=== PATIENT | male | born 1955 | race Two or more races ===

== ENCOUNTER 2024-11-30 06:15 | Inpatient (IN) | payer OTHER ==
[~2024-11-30] VITALS: Ht 180.3 cm; Wt 97.5 kg
[~2024-11-30 06:15] MED LIST: APIX5TAB PO
--- NOTE | 2024-11-30 06:43 | ED.PDOC ---
HPI Comments 69 y/o M, BIBA with PMHX of CKD and CHF presents to the ED for CC of possible Nstemi. Per EMS, patient is coming from [facility], where he presented for chest pain on (11/29/24). Patient was transferred from [facility] for elevated Troponin; patient is currently on Eliquis for atrial fibrillation. Patient denies active chest pain, palpations, tremors, chills, headache, or nausea. No other associated symptoms, modifiers, recent injuries or sick contacts present at this time. Time Seen by MD: 06:36 Reviewed Notes: Nurses Notes, Developmental Services Worker Notes, Medications, Allergies Allergies: Coded Allergies: No Known Drug Allergy (Verified Allergy, Unknown, 11/30/24) Information Source: Patient, Emergency Med Personnel Mode of Arrival: EMS Severity: Moderate Timing: Days Duration: Since onset Prehospital treatment: None Location: Substernal Radiation: No Radiation Onset: At Rest Cardiac Risk Factors: None PE Risk Factors: None History of: None Associated Signs and Symptoms: None Past Medical History PAST MEDICAL HISTORY: CHF, CKF Surgical History: Unknown Family History Family History: Unknown Social History Smoker: Non-Smoker Alcohol: Denies ETOH Use Drugs: Denies Drug Use Lives In: Home Constitutional: denies: chills, diaphoresis, fatigue, fever, malaise, sweats, weakness, others EENTM: denies: blurred vision, double vision, ear bleeding, ear discharge, ear drainage, ear pain, ear ringing, eye pain, eye redness, hearing loss, mouth pain, mouth swelling, nasal discharge, nose bleeding, nose congestion, nose pain, photophobia, tearing, throat pain, throat swelling, voice changes, others Respiratory: denies: cough, hemoptysis, orthopnea, SOB at rest, shortness of breath, SOB with excertion, stridor, wheezing, others Cardiovascular: reports: chest pain; denies: dizzy spells, diaphoresis, Dyspnea on exertion, edema, irregular heart beat, left arm pain, lightheadedness, palpitations, PND, syncope, others Gastrointestinal: denies: abdomen distended, abdominal pain, blood streaked bowels, constipated, diarrhea, dysphagia, difficulty swallowing, hematemesis, melena, nausea, poor appetite, poor fluid intake, rectal bleeding, rectal pain, vomiting, others Genitourinary: denies: burning, dysuria, flank pain, frequency, hematuria, incontinence, penile discharge, penile sore, pain, testicle pain, testicle swelling, urgency, others Neurological: denies: dizziness, fainting, headache, left sided numbness, left sided weakness, numbness, paresthesia, pre-existing deficit, right sided numbness, right sided weakness, seizure, speech problems, tingling, tremors, weakness, others Musculoskeletal: denies: back pain, gout, joint pain, joint swelling, muscle pain, muscle stiffness, neck pain, others Integumetry: denies: bruises, change in color, change in hair/nails, dryness, laceration, lesions, lumps, rash, wounds, others Allergic/Immunocompromised: denies: Difficulty Healing, Frequent Infections, Hives, Itching, others Hematologic/Lymphatic: denies: anemia, blood clots, easy bleeding, easy bruising, swollen glands, others Endocrine: denies: excessive hunger, excessive sweating, excessive thirst, excessive urination, flushing, intolerance to cold, intolerance to heat, une xplained weight gain, unexplained weight loss, others Psychiatric: denies: anxiety, bipolar disorder, depression, hopeless, panic disorder, schizophrenia, sleepless, suicidal, others All Other Systems: Reviewed and Negative Physical Exam General Appearance: No Apparent Distress, Normal HEENT: Normal ENT Inspection, Pharynx Normal, TMs Normal Neck: Full Range of Motion, Non-Tender, Normal, Normal Inspection Respiratory: Chest Non-Tender, Lungs Clear, No Accessory Muscle Use, No Respiratory Distress, Normal Breath Sounds Cardiovascular: No Edema, No JVD, No Murmur, No Gallop, Normal Peripheral Pul ses, Regular Rate/Rhythm Breast Exam: Deferred Gastrointestinal: No Organomegaly, Non Tender, No Pulsatile Mass, Normal Bowel Sounds, Soft Genitalia: Deferred Pelvic: Deferred Rectal: Deferred Extremities: No calf tenderness, Normal capillary refill, Normal inspection, Normal range of motion, Non-tender, No pedal edema Musculoskeletal : Apperance: Normal Neurologic: Alert, director of accounting II-XII nml as Tested, No Motor Deficits, Normal Affect, Normal Mood, No Sensory Deficits Cerebellar Function: Normal Reflexes: Normal Skin: Dry, Normal Color, Warm Lymphatic: No Adenopathy Was a procedure done? Was a procedure done?: No CP Differential Dx Differential Diagnosis: A-fib, AK Differential Diagnosis: Chest Wall Pain, Costochondritis X-Ray, Labs, Meds, VS Vital Signs Date Time Temp Pulse Resp B/P (MAP) Pulse Ox O2 Delivery O2 Flow Rate FiO2 11/30/24 07:30 99.7 62 16 120/61 (80) 99 99.7 11/30/24 07:30 60 16 98 Nasal Cannula* 2 28 11/30/24 07:15 57 11/30/24 07:07 97.5 57 18 122/66 (84) 99 97.5 11/30/24 06:55 99.7 60 18 139/79 (99) 98 99.7 11/30/24 06:17 62 Lab Test 11/30/24 07:35 11/30/24 06:44 Range/Units Troponin I High Sensitivity 2656 *H 2776 *H </=54 ng/L White Blood Count 23.0 H 4.4-10.8 10^3/uL Red Blood Count 4.08 L 4.5-5.90 10^6/uL Hemoglobin 13.2 L 13.5-17.5 g/dL Hematocrit 38.5 L 41.0-53.0 % Mean Corpuscular Volume 94.4 80.0-100.0 fL Mean Corpuscular Hemoglobin 32.3 H 28.0-32.0 pg Mean Corpuscular Hemoglobin Concent 34.2 32.0-36.0 g/dL Red Cell Distribution Width 14.7 H 11.8-14.3 % Platelet Count 158 140-450 10^3/uL Mean Platelet Volume 8.9 6.9-10.8 fL Neutrophils (%) (Auto) 54.9 37.0-80.0 % Lymphocytes (%) (Auto) 37.3 10.0-50.0 % Monocytes (%) (Auto) 7.5 0.0-12.0 % Eosinophils (%) (Auto) 0.3 0.0-7.0 % Basophils (%) (Auto) 0.0 0.0-2.0 % Neutrophils # (Auto) 12.6 H 1.6-8.6 10 ^3/uL Lymphocytes # (Auto) 8.6 H 0.4-5.4 10 ^3/uL Monocytes # (Auto) 1.7 H 0-1.3 10 ^3/uL Eosinophils # (Auto) 0.1 0-0.8 10 ^3/uL Basophils # (Auto) 0 0-0.2 10 ^3/uL Nucleated Red Blood Cells 0.1 % Sodium Level 139 136-145 mmol/L Potassium Level 3.7 3.5-5.1 mmol/L Chloride Level 102 98-107 mmol/L Carbon Dioxide Level 28 20-31 mmol/L Anion Gap 9 5-15 Blood Urea Nitrogen 53 H 9-23 mg/dL Creatinine 3.29 H 0.700-1.30 mg/dL Glomerular Filtration Rate Calc 20 >90 mL/min BUN/Creatinine Ratio 16.1 10.0-20.0 Serum Glucose 182 H 74-106 mg/dL Calcium Level 9.5 8.7-10.4 mg/dL B-Type Natriuretic Peptide 242.48 0-100 pg/mL [place] [address] Ph: [phone] DIAGNOSTIC IMAGING Diagnostic Imaging Report : [id number] Signed PATIENT: SERENA DANIEL ACCT: [id number] UNIT: [id number] : 1955 LOC: ER ROOM / BED: / AGE / SEX: 69 / M ADM STATUS: REG ER SERVICE 4 ORDERING PHYSICIAN: ANN GILMORE MD PROCEDURE(s): CXRP - CHEST PORTABLE REASON: chest pain ORDER NUMBER(s): [id number], ACCESSION NUMBER(s): [id number] CHEST RADIOGRAPH Indication: chest pain Technique: Single frontal view of the chest was obtained Comparison: None FINDINGS: The cardiac silhouette is unremarkable. The lungs demonstrate extensive right upper lobe airspace consolidation. Patchy left mid lung airspace opacification. The pulmonary vasculature is unremarkable. Small left pleural effusion. There is no pneumothorax. IMPRESSION: 1. Right upper lobe airspace consolidation. Patchy left mid lung airspace opacification. Follow-up to resolution. 2. Small left pleural effusion. ATED BY: FABRICIO MCGRATH MD DICTATED DATE/TIME: 11/30/24749 SIGNED BY: FABRICIO MCGRATH MD SIGNED DATE/TIME: 11/30/24749 CC: Time of 1ST Reevaluation: 07:06 Reevaluation 1ST: Unchanged Patient Education/Counseling: Diagnosis, Treatment Family Education/Counseling: No Family Present Additional Information Previous medical encounters reviewed: The following tests were ordered, and results were reviewed by me: TROPONIN X3, EKG X3, CXR, CMP, CBC, B-TYPE NATRIURETIC Additional Information was gathered from interviewing the following independent historians: EMS I reviewed and agreed with the following test results read by other providers: CXR I discussed treatment and results with medical personnel and: Patient Comprehensive systems review obtained and negative except for what is stated in the HPI. Departure 1 Departure Time of Disposition: 08:30 (Patient presented as a transfer from [place]. Patient is a [facility] patient however they gave authorization to [facility] for admission to [facility]. Patient was treated for an NSTEMI however patient does have what appears to be a pneumonia on chest x-ray. Patient was empirically cover with antibiotics however patient has a component of volume overload so we will not give fluids at this time. Consult Cardiology regarding to the elevated troponins admit patient for further workup and expert consultationFamily updated me that several days ago patient had slurred speech and weakness that resolved. I subsequently ordered a CT head.) Impression: Primary Impression: Right upper lobe pneumonia Qualified Codes: J18.9 - Pneumonia, unspecified organism Additional Impression: NSTEMI (non-ST elevated myocardial infarction) Disposition: 09 ADMITTED INPATIENT Admit to: Tele Condition: Guarded Critical Care Note Critical Care Time?: Yes Critical care comment: NSTEMI Authorized and Performed by: Ann Gilmore MD Total critical care time: Approximately 36 minutes Due to a high probability of clinically significant, life threatening deterioration, the patient required my highest level of preparedness to intervene emergently and I personally spent this critical care time directly and personally managing the patient. This critical care time included obtaining a history; examining the patient; pulse oximetry; ordering and review of studies; arranging urgent treatment with development of a management plan; evaluation of patient's response to treatment; frequent reassessment; and, discussions with other providers. This critical care time was performed to assess and manage the high probability of imminent, life-threatening deterioration that could result in multi-organ failure. It was exclusive of separately billable procedures and treating other patients and teaching time. Please see my other sections and the rest of the note for further information on patient assessment and treatment. Stability Stability form required: No Heart Score Heart Score: Heart Score Response (Comments) Value History Slightly Suspicious 0 EKG N/A 0 Age >65 2 Risk Factors 1 or 2 risk factors 1 Troponin N/A 0 Total 3 I personally scribed for ANN GILMORE MD ([email or web address]) on 11/30/24 at 06:43. Electronically submitted by Lisa Sandoval ([facility]). I personally scribed for ANN GILMORE MD ([email or web address]) on 11/30/24 at 06:51. Electronically submitted by Lisa Sandoval ([facility]). I personally scribed for ANN GILMORE MD ([email or web address]) on 11/30/24 at 08:12. Electronically submitted by Lisa Sandoval ([email or web address]). ANN GILMORE MD Nov 30, 2024 06:43
[2024-11-30 07:00] LABS: Basophils # (auto) 0 10 ^3/uL (0-0.2); Eosinophils # (auto) 0.1 10 ^3/uL (0-0.8); Eosinophils % (auto) 0.3 % (0.0-7.0); Hematocrit 38.5 % (41.0-53.0); Hemoglobin 13.2 g/dL (13.5-17.5); Lymphocytes # (auto) 8.6 10 ^3/uL (0.4-5.4); Lymphocytes % (auto) 37.3 % (10.0-50.0); Mean Corpuscular Hemoglobin 32.3 pg (28.0-32.0); Mean Corpuscular Hgb Conc. 34.2 g/dL (32.0-36.0); Mean Corpuscular Volume 94.4 fL (80.0-100.0); Monocytes # (auto) 1.7 10 ^3/uL (0-1.3); Monocytes % (auto) 7.5 % (0.0-12.0); Neutrophils # (auto) 12.6 10 ^3/uL (1.6-8.6); Neutrophils % (auto) 54.9 % (37.0-80.0); Nucleated Red Blood Cells % 0.1 %; Platelet Count (auto) 158 10^3/uL (140-450); Red Blood Cells 4.08 10^6/uL (4.5-5.90); Red Cell Distribution Width 14.7 % (11.8-14.3)
[2024-11-30 07:09] LABS: Anion Gap 9 (5-15); Carbon Dioxide 28 mmol/L (20-31); Chloride 102 mmol/L (98-107); Potassium 3.7 mmol/L (3.5-5.1); Sodium 139 mmol/L (136-145)
[2024-11-30 07:10] LABS: Calcium 9.5 mg/dL (8.7-10.4)
[2024-11-30 07:15] LABS: BUN/Creatinine Ratio 16.1 (10.0-20.0)
--- NOTE | 2024-11-30 07:17 | ECG ---
[facility] Test Date: 2024-11-30 Test Time: 07:15:54 Pat Name: SERENA DANIEL Department: ER Room: [address] [place] [address] Gender: M Hay Buckler: KAMERON : 1955 Requested By: ANN WEBB Order Number: [id number] Reading MD: Acosta Fay Measurements Intervals [place] Rate: 57 P: 52 MT: 192 QRS: 93 QRSD: 107 T: 55 QT: 482 QTc: 470 Interpretive Statements Sinus rhythm Right axis deviation Borderline repolarization abnormality Baseline wander in lead(s) I,III,aVR,aVL,V1,V2,V3,V4,V5,V6 Electronically Signed On 11-30-2024 15:13:10 PDT by Acosta Fay Please click the below link to view image of tracing.
[2024-11-30 07:19] LABS: Blood Urea Nitrogen 53 mg/dL (9-23); Glucose 182 mg/dL (74-106)
[2024-11-30 07:30] VITALS: PULSE 60; RESP 16; O2SAT 98
--- NOTE | 2024-11-30 07:52 | DVH ---
CHEST RADIOGRAPH Indication: chest pain Technique: Single frontal view of the chest was obtained Comparison: None FINDINGS: The cardiac silhouette is unremarkable. The lungs demonstrate extensive right upper lobe airspace con solidation. Patchy left mid lung airspace opacification. The pulmonary vasculature is unremarkable. S mall left pleural effusion. There is no pneumothorax. IMPRESSION: 1. Right upper lobe airspace consolidation. Patchy left mid lung airspace opacification. Follow-up t o resolution. 2. Small left pleural effusion.
[2024-11-30] MEDS: VANCOMYCIN 1GM/200ML PM 200 ML IV ONE (08:30)
[2024-11-30] MEDS: AZITHROMYCIN 250 MG TAB PO ONE (08:42)
[2024-11-30] MEDS: CEFEPIME 2GM/50ML NS 50 ML IV ONE (08:43)
--- NOTE | 2024-11-30 09:15 | ECG ---
[facility] Test Date: 2024-11-30 Test Time: 09:14:13 Pat Name: SERENA DANIEL Department: ED Room: [address] [place] [address] Gender: M Senior Trainer: leigh ann : 1955 Requested By: ANN WEBB Order Number: [id number] Reading MD: Acosta Fay Measurements Intervals [place] Rate: 61 P: 72 NV: 195 QRS: 84 QRSD: 113 T: 55 QT: 473 QTc: 477 Interpretive Statements Sinus rhythm Borderline intraventricular conduction delay Borderline prolonged QT interval Baseline wander in lead(s) V5 Electronically Signed On 11-30-2024 15:14:11 PDT by Acosta Fay Please click the below link to view image of tracing.
--- NOTE | 2024-11-30 09:30 | DVH ---
CT HEAD WITHOUT CONTRAST INDICATION: recent slurred speach EXAM DATE: 11/30/2024 08:49 AM COMPARISON: None RADIATION DOSE: CTDIvol: 53.93 mGy, DLP: 1082.02 mGy*cm PROCEDURE: CT scans of the head were obtained from the vertex to the skull base. Sagittal and coronal reconstructions were provided. All CT scans at this medical facility are performed using dose modulation techniques as appropriate t o a performed exam including the following: Automated exposure control was utilized; adjustment of th e MA and/or KV according to patient size; and use of iterative reconstruction technique. FINDINGS: There is sulcal and ventricular prominence. The brainshows normal morphology and mckeon-whi te matter differentiation, without intracranial hemorrhage, extra-axial fluid collection, mass effect or acute large vessel infarct. The ventricles are normal in size. The basal cisterns are patent. The skull and visible facial bones are intact. The paranasal sinuses, mastoid air cells and middle ear c avities are well-aerated. The soft tissues of the scalp are unremarkable. IMPRESSION: No acute intracranial abnormality.
[2024-11-30 11:05] LABS: INR 1.14 (0.9-1.15); Partial Thromboplastin Time 38.4 SEC (24.5-34.5); Prothrombin Time 11.9 sec (9.3-11.8)
[2024-11-30] MEDS: HEPARIN SODIUM (PORCINE) 5000 UNITS/ML 1ML VIAL IV ONE (11:12)
[2024-11-30] MEDS: HEPARIN DRIP/D5W 100UNITS/ML 250 ML IV SCH ×2 (11:20→17:40)
[2024-11-30] MEDS ORDERED: MORPHINE SULFATE INJ 2 MG/ml SYRG IV PRN (12:30)
[2024-11-30] MEDS ORDERED: NITROGLYCERIN 0.4 MG SL TAB SL PRN (12:30)
[2024-11-30] MEDS ORDERED: DEXTROSE (50%) 50ML SYRG IV PRN (12:30)
[2024-11-30] MEDS ORDERED: FIN5T PO (12:41)
[2024-11-30] MEDS ORDERED: FURO20TA4 PO (12:41)
[2024-11-30] MEDS ORDERED: AMLO1TAB23 PO (12:41)
[2024-11-30] MEDS ORDERED: ATOR40TA52 PO (12:41)
--- NOTE | 2024-11-30 12:43 | DVHHP2 ---
History of Present Illness Reason for Visit: NSTEMI History of Present Illness This 69-year-old male with past medical history of CHF, CKD, hypertension, diabetes, AFib, a flutter, s/p cardiac ablation presents in the ED from [facility] where he presented for chest pain yesterday. The patient reports waking up yesterday morning with chills and tremors for which prompted him to visit [facility]. From [facility] the patient was transferred in this facility due to elevated troponin. The patient denies dizziness, diaphoresis, chest pain, shortness of breath, or other acute symptoms. Past Medical History As stated in HPI Past Surgical History Cardiac ablation Family History Reviewed, non-contributory to the management of this case. Past Social History The patient lives at home, denies smoking, alcohol or illicit drugs abuse. Review of Systems Constitutional: Yes: Chills, Weakness, Malaise; No: Fever, Sweats, Other Eyes: No: Pain, Vision change, Conjunctivae inflammation, Eyelid inflammation, Other, Redness ENT: No: Ear pain, Ear discharge, Nose pain, Nose discharge, Nose congestion, Mouth pain, Mouth swelling, Throat pain, Throat swelling, Other Respiratory: No: Cough, Dry, Shortness of breath, SOB with excertion, Wheezing, Hemoptysis, Pleuritic Pain, Sputum, Wheezing, Other Cardiovascular: No: Chest Pain, Palpitations, Orthopnea, Paroxysmal Noc. Dyspnea, Edema, Lt Headedness, Other Gastrointestinal: No: Nausea, Vomiting, Abdominal Pain, Diarrhea, Constipation, Melena, Hematochezia, Other Genitourinary: No Dysuria, No Frequency, No Incontinence, No Hematuria, No Retention, No Other Musculoskeletal: No: other, neck pain, shoulder pain, arm pain, back pain, hand pain, leg pain, foot pain Skin: No: Rash, Lesions, Jaundice, Bruising, Other Neurological: Other (Tremors); No: Weakness, Numbness, Incoordination, Change in speech, Confusion, Seizures Allergies: Coded Allergies: No Known Drug Allergy (Verified Allergy, Unknown, 11/30/24) Medications Current Medications Medications Dose Ordered Sig/Christine Route Start Time Stop Time Status Last Admin Dose Admin Heparin Sodium/ Dextrose 250 ml @ 10 mls/hr Q24H IV 11/30/24 10:30 11/30/24 11:20 10 MLS/HR Exam Vital Signs Vital Signs Date Time Temp Pulse Resp B/P (MAP) Pulse Ox O2 Delivery O2 Flow Rate FiO2 11/30/24 12:00 62 16 117/58 (77) 96 11/30/24 07:30 99.7 99.7 11/30/24 07:30 Nasal Cannula* 2 28 General Appearance: Alert, Oriented X3, Cooperative, mild distress HEENT: Atraumatic, PERRLA, EOMI, Mucous membr. moist/pink Respiratory: Other (Diminished lung sounds) Cardiovascular: Regular rate, Normal S1, Normal S2 Abdominal: Normal bowel sounds, Soft, No tenderness Extremities: No clubbing, No cyanosis, No edema, Normal pulses Skin: No rashes, No breakdown, No significant lesion Neuro: Strength at 5/5 X4 ext, Normal tone Psych/Mental Status: Mental status NL Labs/Xrays Labs Test 11/30/24 09:36 11/30/24 08:34 11/30/24 06:44 11/30/24 06:41 Range/Units Troponin I High Sensitivity 2523 *H </=54 ng/L Lactic Acid Level 0.7 0.4-2.0 mmol/L White Blood Count 23.0 H 4.4-10.8 10^3/uL Red Blood Count 4.08 L 4.5-5.90 10^6/uL Hemoglobin 13.2 L 13.5-17.5 g/dL Hematocrit 38.5 L 41.0-53.0 % Mean Corpuscular Volume 94.4 80.0-100.0 fL Mean Corpuscular Hemoglobin 32.3 H 28.0-32.0 pg Mean Corpuscular Hemoglobin Concent 34.2 32.0-36.0 g/dL Red Cell Distribution Width 14.7 H 11.8-14.3 % Platelet Count 158 140-450 10^3/uL Mean Platelet Volume 8.9 6.9-10.8 fL Neutrophils (%) (Auto) 54.9 37.0-80.0 % Lymphocytes (%) (Auto) 37.3 10.0-50.0 % Monocytes (%) (Auto) 7.5 0.0-12.0 % Eosinophils (%) (Auto) 0.3 0.0-7.0 % Basophils (%) (Auto) 0.0 0.0-2.0 % Neutrophils # (Auto) 12.6 H 1.6-8.6 10 ^3/uL Lymphocytes # (Auto) 8.6 H 0.4-5.4 10 ^3/uL Monocytes # (Auto) 1.7 H 0-1.3 10 ^3/uL Eosinophils # (Auto) 0.1 0-0.8 10 ^3/uL Basophils # (Auto) 0 0-0.2 10 ^3/uL Nucleated Red Blood Cells 0.1 % Sodium Level 139 136-145 mmol/L Potassium Level 3.7 3.5-5.1 mmol/L Chloride Level 102 98-107 mmol/L Carbon Dioxide Level 28 20-31 mmol/L Anion Gap 9 5-15 Blood Urea Nitrogen 53 H 9-23 mg/dL Creatinine 3.29 H 0.700-1.30 mg/dL Glomerular Filtration Rate Calc 20 >90 mL/min BUN/Creatinine Ratio 16.1 10.0-20.0 Serum Glucose 182 H 74-106 mg/dL Calcium Level 9.5 8.7-10.4 mg/dL B-Type Natriuretic Peptide 242.48 0-100 pg/mL Prothrombin Time 11.9 H 9.3-11.8 sec Prothrombin Time INR 1.14 0.9-1.15 Activated Partial Thromboplast Time 38.4 H 24.5-34.5 SEC PROCEDURE(s): CXRP - CHEST PORTABLE REASON: chest pain ORDER NUMBER(s): [id number], ACCESSION NUMBER(s): [id number] CHEST RADIOGRAPH Indication: chest pain Technique: Single frontal view of the chest was obtained Comparison: None FINDINGS: The cardiac silhouette is unremarkable. The lungs demonstrate extensive right upper lobe airspace consolidation. Patchy left mid lung airspace opacification. The pulmonary vasculature is unremarkable. Small left pleural effusion. There is no pneumothorax. IMPRESSION: 1. Right upper lobe airspace consolidation. Patchy left mid lung airspace opacification. Follow-up to resolution. 2. Small left pleural effusion. Assessment/Plan Assessment/Plan # NSTEMI # hx of afib/aflutter s/p cardiac ablation # CHF Admit to telemetry unit ACS protocol Heparin drip Asa, statins Cardiology consult Echocardiogram pending Trend troponin Monitor for chest pain # hypotension Continue with home meds Monitor # pneumonia Empiric antibiotic Blood and sputum culture # ROBERT on CKD 4 IV fluid Nephrology consult # diabetes Check A1c Insulin sliding scale DVT prophylaxis Medical plan discussed with patient Plan discussed with: Patient My Orders Orders - PEPE MARES Procedure Category Date Status Time Urinalysis LAB 11/30/24 Logged 12:30 Blood Culture JIM 11/30/24 Logged 12:30 * Cardiology Consult CONS 11/30/24 Transmitted 12:30 Aspirin Tablet PHA 12/01/24 Logged 10:00 Lipid Panel LAB 11/30/24 Logged 12:30 Magnesium LAB 11/30/24 Logged 12:30 Fall Risk Precautions CHERY 11/30/[address] 12:30 Comprehensive LAB 12/01/24 Verified Metabolic Panel 04:00 Condition: Fair CHERY 11/30/24 In Process 12:30 Nitroglycerin PHA 11/30/24 Logged Sublingual (Ntrostat 12:30 Morphine Sulfate PHA 11/30/24 Logged Injection 12:30 Notify Md Of Changes [facility] 11/30/24 In Process From Base 12:30 Die Turner For [facility] 11/30/24 In Process 24 Hours 12:30 Emergency Dysrhythmia [facility] 11/30/24 In Process Protocol 12:30 Rhythm Strips Once [facility] 11/30/24 In Process Every Shift 12:30 Oxygen By Nasal RT 11/30/24 Transmitted Cannula 12:30 Glucose Blood PHA 11/30/24 Logged (Accu-Chek Comfort 18:00 Insulin R (Human) PHA 11/30/24 Logged (Insulin R) 18:00 Dextrose 50% Syringe PHA 11/30/24 Logged 12:30 Hemoglobin A1c LAB 11/30/24 Logged 12:30 Admit ADMIT 11/30/24 Verified 12:30 Code Status CODE 11/30/24 Verified 12:30 Ondansetron Hcl PHA 11/30/24 Verified (Zofran) 12:30 *Dr. Emre Lowe CONS 11/30/24 Transmitted -[place] 12:41 Date of Service: Nov 30, 2024 Billing Provider: PEPE MARES Common Visit Codes: [id number] INP/OBS CARE (HIGH) PEPE MARES Nov 30, 2024 12:43
[2024-11-30 13:26] LABS: Magnesium 2.2 mg/dL (1.6-2.6)
[2024-11-30 14:00] LABS: Urine Bacteria None Seen /hpf (None Seen)
[2024-11-30 14:09] LABS: Urine Blood Negative /uL (Negative); Urine Clarity Clear (Clear); Urine Color Light-Yellow (Yellow); Urine Protein, UAD Negative (Negative); Urine Specific Gravity 1.012 (1.001-1.035); Urine Squamous Epithelial Cell None Seen /hpf (<5); Urine Urobilinogen Normal (Negative); Urine WBC < 1 /HPF (0-3); Urine pH 5.5 (5.0-9.0)
[2024-11-30 14:11] LABS: Basophils # (auto) 0.1 10 ^3/uL (0-0.2); Basophils % (auto) 0.3 % (0.0-2.0); Eosinophils # (auto) 0.1 10 ^3/uL (0-0.8); Eosinophils % (auto) 0.4 % (0.0-7.0); Hematocrit 43.8 % (41.0-53.0); Hemoglobin 14.3 g/dL (13.5-17.5); Lymphocytes # (auto) 8.8 10 ^3/uL (0.4-5.4); Mean Corpuscular Hemoglobin 31.4 pg (28.0-32.0); Mean Corpuscular Hgb Conc. 32.6 g/dL (32.0-36.0); Mean Corpuscular Volume 96.2 fL (80.0-100.0); Monocytes # (auto) 1.6 10 ^3/uL (0-1.3); Monocytes % (auto) 6.8 % (0.0-12.0); Neutrophils # (auto) 13.2 10 ^3/uL (1.6-8.6); Neutrophils % (auto) 55.5 % (37.0-80.0); Platelet Count (auto) 165 10^3/uL (140-450); Red Blood Cells 4.55 10^6/uL (4.5-5.90); Red Cell Distribution Width 14.8 % (11.8-14.3); White Blood Cell 23.8 10^3/uL (4.4-10.8)
--- NOTE | 2024-11-30 14:57 | DVHSR ---
APPROVED REPORT EXAM: Two-dimensional and M-mode echocardiogram with Doppler and color Doppler. Blood Pressure: 102/59 mmHg INDICATION NSTEMI RISK FACTORS Height: 6'0", Weight: 198 DIMENSIONS LVDd4.5 (3.8-5.7cm)LA (2D)4.7 (1.9-4.0cm)Aortic Root4.0 (2.0-3.7cm) LVDs3.2 (2.5-4.0cm)LA (MM) (1.9-4.0cm)Aortic Cusp Exc0.9 (1.5-2.0cm) EF (%) 60.0 (55-70%)Rt. Atrium4.5 (1.9-4.0cm)Asc. Aorta cm IVSd1.3 (0.7-1.1cm)RV (D)4.1 (1.8-2.4cm) PWd1.2 (0.7-1.1cm) Mitral Valve MitralMitral Stenosis E wave1.35m/sMV Mean GR.4mmHg A wave1.44m/sMV Peak GR.9mmHg E/A ratio0.92D MVAcm2 DECEL [id number] 1/2 Aycp10ie IVRTmsDop MVA2.88cm2 Aortic Valve Aortic ValveAortic Stenosis V11.38m/[place] Mean GR.11mmHg V22.26m/[place] Peak GR.20mmHg LVOT Diameter2.0 (1.8-2.4cm)Doppler AVA1.92cm2 Pulmonic Valve V21.53m/s Tricuspid Valve TR Velocity2.75m/s [id number] Other Information Technically limited study due to body habitus. Conclusion Sinus rhythm. Left atrial enlargement. Sclerosis of the non coronary cusp. Calcification at the base of the sinus of Valsalva. Moderate mi tral annular calcification with diminished excursion of the posterior mitral leaflet. Noted aortic s clerosis of moderate degree. Left ventricular function is preserved at 60% with normal RV function. There is a peak gradient across the aortic valve of 20 mmHg and a mean gradient of11 mmHg consistent with mild aortic sclerosis with no significant stenosis. Mild tricuspid regurgitation. No pericardial effusion masses or vegetations.
--- NOTE | 2024-11-30 15:24 | DVHINCON2 ---
Date Seen: Nov 30, 2024 Referring Physician Jesse Reason for Consultation NSTEMI History of Present Illness 69-year-old male with PMH for HTN, HLD, paroxysmal atrial fibrillation s/p ablations 09/2024 not on anticoagulation therapy, CKD, diabetes was transferred from [facility] for NSTEMI. Patient states that he woke up and started feeling sick with chills tremors denies fever and felt like he had some palpitations, denies chest pain and therefore went to [facility]. Well in the ER patient noted to have elevated troponins [facility] Troponins positive trending 2776, 2656, 2523. Patient denies any chest pain. Patient states he did have episode of palpitations with his chills and tremors though did not last. Patient endorses that he has been following up with EP in that they had removed him from [facility] over a month ago. Denies any other episodes of AFib post ablation. CXR showing right upper lobe airspace consolidation with patchy left mid lung airspace opacification, small left pleural effusion. EKG reviewed and shows normal sinus rhythm at 62 beats per minute, no acute ST and T-wave abnormality noted Past Medical History As stated above Past Surgical History Atrial fibrillation/flutter ablation 09/2024 Family History Denies pertinent family cardiac history Social History Denies alcohol, tobacco, or illicit drug use. Allergies: Coded Allergies: No Known Drug Allergy (Verified Allergy, Unknown, 11/30/24) Home Meds Reported Medications Amlodipine Besylate (Amlodipine Besylate) 10 Mg Tab, 1 TAB PO DAILY 11/30/24 Furosemide (Furosemide) 20 Mg Tab, 1 TAB PO DAILY 11/30/24 Atorvastatin Calcium (ATORVASTATIN CALCIUM) 40 Mg Tab, 1 TAB PO DAILY 11/30/24 Finasteride (Finasteride) 5 Mg Tab, 1 TAB PO DAILY 11/30/24 Current Medications Current Medications Medications (Trade) Dose Ordered Sig/Christine Route PRN Reason Start Time Stop Time Status Last Admin Heparin Sodium/ Dextrose 250 ml @ 10 mls/hr Q24H IV 11/30/24 10:30 11/30/24 11:20 Aspirin 81 mg DAILY PO 12/01/24 10:00 Ondansetron HCl (Zofran) 4 mg Q4HP PRN IV NAUSEA / VOMITING 11/30/24 12:30 Nitroglycerin (Ntrostat Sublingual) 0.4 mg Q5MINP PRN SL FOR CHEST PAIN 11/30/24 12:30 Morphine Sulfate 2 mg Q30M PRN IV FOR CHEST PAIN 11/30/24 12:30 Diagnostic Test (Pha) (Accu-Chek Comfort Curve T) 1 strip Q6HR 11/30/24 18:00 11/30/24 14:59 DC Insulin Human Regular (InsuLIN R) Q6HR SC 11/30/24 18:00 11/30/24 14:45 DC Dextrose 50 ml UD PRN IV Blood Sugar LESS THAN 60 11/30/24 12:30 Sodium Chloride 1,000 ml @ 75 mls/hr [id number] IV 11/30/24 14:30 Ceftriaxone Sodium 50 ml @ 100 mls/hr DAILY@09 IV 11/30/24 14:30 Azithromycin 250 ml @ 125 mls/hr DAILY IV 12/01/24 10:00 Diagnostic Test (Pha) (Accu-Chek Comfort Curve T) 1 strip ACHS 11/30/24 17:00 Insulin Human Regular (InsuLIN R) ACHS SC 11/30/24 17:00 Review of Systems Constitutional: No: Fever, Chills, Sweats, Weakness, Malaise, Other Eyes: No: Pain, Vision change, Conjunctivae inflammation, Eyelid inflammation, Other, Redness ENT: No: Ear pain, Ear discharge, Nose pain, Nose discharge, Nose congestion, Mouth pain, Mouth swelling, Throat pain, Throat swelling, Other Respiratory: No: Cough, Dry, Shortness of breath, SOB with exertion, Wheezing, Hemoptysis, Pleuritic Pain, Sputum, Wheezing, Other Cardiovascular: ; No: Chest Pain Palpitations, Orthopnea, Paroxysmal Noc. Dyspnea, Edema, Lt Headedness, Other Gastrointestinal: No: Nausea, Vomiting, Abdominal Pain, Diarrhea, Constipation, Melena, Hematochezia, Other Genitourinary: No Dysuria, No Frequency, No Incontinence, No Hematuria, No Retention, No Other Musculoskeletal: neck pain; No: other, shoulder pain, arm pain, back pain, hand pain, leg pain, foot pain Skin: No: Rash, Lesions, Jaundice, Bruising, Other Neurological: Other (Dizziness, headache.); No: Weakness, Numbness, Incoordination, Change in speech, Confusion, Seizures Vital Signs Vital Signs Date Time Temp Pulse Resp B/P (MAP) Pulse Ox O2 Delivery O2 Flow Rate FiO2 11/30/24 14:00 85 16 123/38 (66) 96 11/30/24 07:30 99.7 99.7 11/30/24 07:30 Nasal Cannula* 2 28 Physical Exam General appearance: Patient is well-developed, well-nourished, in no acute distress. HEENT: Exam shows: Normocephalic, atraumatic, PERRLA, EOMI Neck: Supple, no bruits Chest: Equal chest excursion bilaterally. Breath sounds normal-no rales or wheezes. Heart: Rhythm: Regular rate; no murmur or gallop Abdomen: Exam shows: Soft, nontender, nondistended Musculoskeletal: No clubbing, no cyanosis, no lower extremity edema Dermatology: Skin warm, moist. Neurological: Exam shows: Alert and oriented x4, normal speech Available prior records, labs, EKG, rhythm strips reviewed and interpreted Labs/Diagnostic Data Labs Test 11/30/24 14:00 11/30/24 13:10 11/30/24 09:36 11/30/24 08:34 Range/Units White Blood Count 23.8 H 4.4-10.8 10^3/uL Red Blood Count 4.55 4.5-5.90 10^6/uL Hemoglobin 14.3 13.5-17.5 g/dL Hematocrit 43.8 # 41.0-53.0 % Mean Corpuscular Volume 96.2 80.0-100.0 fL Mean Corpuscular Hemoglobin 31.4 28.0-32.0 pg Mean Corpuscular Hemoglobin Concent 32.6 32.0-36.0 g/dL Red Cell Distribution Width 14.8 H 11.8-14.3 % Platelet Count 165 140-450 10^3/uL Mean Platelet Volume 9.4 6.9-10.8 fL Neutrophils (%) (Auto) 55.5 37.0-80.0 % Lymphocytes (%) (Auto) 37.0 10.0-50.0 % Monocytes (%) (Auto) 6.8 0.0-12.0 % Eosinophils (%) (Auto) 0.4 0.0-7.0 % Basophils (%) (Auto) 0.3 0.0-2.0 % Neutrophils # (Auto) 13.2 H 1.6-8.6 10 ^3/uL Lymphocytes # (Auto) 8.8 H 0.4-5.4 10 ^3/uL Monocytes # (Auto) 1.6 H 0-1.3 10 ^3/uL Eosinophils # (Auto) 0.1 0-0.8 10 ^3/uL Basophils # (Auto) 0.1 0-0.2 10 ^3/uL Nucleated Red Blood Cells 0.0 % Urine Color Light-yellow Yellow Urine Clarity Clear Clear Urine pH 5.5 5.0-9.0 Urine Specific [place] 1.012 1.001-1.035 Urine Protein Negative Negative Urine Ketones Negative Negative Urine Blood Negative Negative /uL Urine Nitrite Negative Negative Urine Bilirubin Negative Negative Urine Urobilinogen Normal Negative mg/dL Urine Leukocyte Esterase Negative Negative /uL Urine RBC <1 0 - 3 /hpf Urine Microscopic WBC < 1 0-3 /HPF Urine Squamous Epithelial Cells None seen <5 /hpf Urine Bacteria None seen None Seen /hpf Urine Glucose 3+ H Normal mg/dL Magnesium Level 2.2 1.6-2.6 mg/dL Troponin I High Sensitivity 2523 *H </=54 ng/L Triglycerides Level 56 < 150 mg/dL Cholesterol Level 102 < 200 mg/dL LDL Cholesterol 36 < 100 mg/dL HDL Cholesterol 42 40-59 mg/dL Lactic Acid Level 0.7 0.4-2.0 mmol/L Test 11/30/24 06:44 11/30/24 06:41 Range/Units Sodium Level 139 136-145 mmol/L Potassium Level 3.7 3.5-5.1 mmol/L Chloride Level 102 98-107 mmol/L Carbon Dioxide Level 28 20-31 mmol/L Anion Gap 9 5-15 Blood Urea Nitrogen 53 H 9-23 mg/dL Creatinine 3.29 H 0.700-1.30 mg/dL Glomerular Filtration Rate Calc 20 >90 mL/min BUN/Creatinine Ratio 16.1 10.0-20.0 Serum Glucose 182 H 74-106 mg/dL Hemoglobin A1c 5.7 <5.7 % A1C Calcium Level 9.5 8.7-10.4 mg/dL B-Type Natriuretic Peptide 242.48 0-100 pg/mL Prothrombin Time 11.9 H 9.3-11.8 sec Prothrombin Time INR 1.14 0.9-1.15 Activated Partial Thromboplast Time 38.4 H 24.5-34.5 SEC Assessment * NSTEMI - denies chest pain. Negative acute ischemic changes on EKG review. Troponin trending stable. Likely type 2 [place]. continue heparin drip for 24-48 hours. Continue aspirin and statin. Normal EF on echo. * Acute hypoxic respiratory failure, pneumonia - continue IV antibiotics, on O2 supplementation at 2 L NC. * Paroxysmal atrial fibrillation, s/p ablation 09/2024 - currently sinus rhythm. * Mild acute on chronic HFpEF - we will hold the diuresis to worsening kidney function. Follow-up nephrology recs. * ROBERT on CKD- avoid nephrotoxic agents. Nephrology on board. * Palpitations - continue telemetry monitoring, outpatient Holter monitor. Case Discussed with Dr Fay. Continue medical management with heparin times 24-48 hours. Continue aspirin and statin. Negative cardiac symptoms. EKG negative for acute ischemic changes. Outpatient event monitoring for arrhythmias to see if patient is having recurrent episodes of AFib. Normal EF on echo. No significant valvular structural abnormalities. Plan of care discussed, recommend continued medical management at this time due to worsening kidney function. Critical care, time spent: 48 minutes This medical document was created using an electronic medical record system with voice recognition software and computerized dictation system. Although this document has been carefully reviewed, there might still be some phonetic and typographical errors. Occasional wrong-word or ``sound-alike substitutions may have occurred due to the inherent limitations of voice recognition software. These areas are purely typographical due to imperfections of the software programs and do not reflect any compromise in the patient's medical care. Please read the chart carefully and recognize, using context, where these substitutions have occurred. Thank you for allowing me to participate in the management of this patient. The treatment plan was discussed with and agreed upon by patient/family including requesting consultants and ordering of imaging/procedures. Plan discussed with: Patient, Spouse NYHA Physical activity limitations: Class2(Slight)fatigue,sob Date of Service: Nov 30, 2024 Billing Provider: PAULINA DOZIER Cardiology Common Codes: [id number] INP/OBS CARE (High), [id number] CARE 30-74 MIN PAULINA DOZIER Nov 30, 2024 15:24
[2024-11-30] MEDS: SODIUM CHLORIDE 0.9% 1,000 ML IV SCH (15:35)
[2024-11-30] MEDS: cefTRIAXone 1GM/50ML D5W 50 ML IV SCH (15:36)
[2024-11-30] MEDS: InsuLIN REG 1unit/0.01ml Soln (100units/ml) SC SCH (17:00)
[2024-11-30] MEDS: ACCU-CHEK COMFORT CURVE STRIP VI SCH (17:04)
[2024-11-30] MEDS: ACETAMINOPHEN 325 MG TAB PO ONE (17:13)
[2024-11-30 17:23] LABS: INR 1.18 (0.9-1.15); Prothrombin Time 12.3 sec (9.3-11.8)
[2024-11-30 17:26] LABS: Partial Thromboplastin Time 76.9 SEC (24.5-34.5)
--- NOTE | 2024-11-30 17:34 | CONS ---
Pharmacy Clinical Information: HEPARIN DRIP RATE LOWERED FROM 1000 UNITS/HR TO 800 UNITS/HR = 8 ML/HR PER APTT OF 76.9. CONFIRMED WITH RN THOMPSON. NEXT APTT DRAW SCHEDULED FOR 0 PER RX PROTOCOL. NIKKI FUENTES PHARMACIST Nov 30, 2024 17:34
[2024-11-30 17:59] VITALS: BP 127/60; PULSE 76; RESP 16; TEMP 97.1; O2SAT 97
[2024-11-30] MEDS ORDERED: ACCU-CHEK COMFORT CURVE STRIP VI SCH (18:00)
[2024-11-30] MEDS ORDERED: InsuLIN REG 1unit/0.01ml Soln (100units/ml) SC SCH (18:00)
[2024-11-30 20:00] VITALS: PULSE 84; O2SAT 98
[2024-11-30] MEDS ORDERED: TRAZ-227 PO (20:53)
[2024-11-30 21:00] VITALS: BP 130/58; PULSE 71; RESP 18; TEMP 97.8; O2SAT 96
[2024-11-30 23:55] LABS: INR 1.09 (0.9-1.15); Partial Thromboplastin Time 42.7 SEC (24.5-34.5); Prothrombin Time 11.5 sec (9.3-11.8)
[2024-12-01] VITALS (13 sets, daily range): BP systolic 104–129; BP diastolic 51–61; PULSE 71–89; RESP 12–18; TEMP 97.4–100.6; O2SAT 90–100
[2024-12-01] MEDS: traZODone HCL 50 MG TAB PO PRN (00:09)
[2024-12-01] MEDS: HEPARIN DRIP/D5W 100UNITS/ML 250 ML IV SCH (00:48)
[2024-12-01] MEDS: ONDANSETRON HCL 4 MG/2 ML VIAL IV PRN (02:11)
[2024-12-01] MEDS ORDERED: AMLO1TAB22 PO (02:24)
[2024-12-01] MEDS ORDERED: INSU100I4 SC (02:24)
[2024-12-01] MEDS ORDERED: GABA-1250 PO (02:24)
[2024-12-01] MEDS ORDERED: INSU100S4 SC (02:24)
[2024-12-01] MEDS ORDERED: FAMO40TA7 PO (02:24)
[2024-12-01] MEDS ORDERED: MONT-8 PO (02:24)
[2024-12-01] MEDS ORDERED: ALLO100T PO (02:24)
[2024-12-01] MEDS ORDERED: MET25T PO (02:24)
[2024-12-01] MEDS ORDERED: FLUT1AER6 INH (02:24)
[2024-12-01 06:31] LABS: Basophils # (auto) 0 10 ^3/uL (0-0.2); Basophils % (auto) 0.2 % (0.0-2.0); Eosinophils # (auto) 0 10 ^3/uL (0-0.8); Eosinophils % (auto) 0.2 % (0.0-7.0); Hematocrit 37.9 % (41.0-53.0); Hemoglobin 12.8 g/dL (13.5-17.5); Lymphocytes # (auto) 4.7 10 ^3/uL (0.4-5.4); Lymphocytes % (auto) 26.7 % (10.0-50.0); Mean Corpuscular Hemoglobin 32.3 pg (28.0-32.0); Mean Corpuscular Hgb Conc. 33.8 g/dL (32.0-36.0); Mean Corpuscular Volume 95.5 fL (80.0-100.0); Monocytes # (auto) 0.8 10 ^3/uL (0-1.3); Monocytes % (auto) 4.5 % (0.0-12.0); Neutrophils # (auto) 12.2 10 ^3/uL (1.6-8.6); Neutrophils % (auto) 68.4 % (37.0-80.0); Nucleated Red Blood Cells % 0.2 %; Platelet Count (auto) 155 10^3/uL (140-450); Red Blood Cells 3.97 10^6/uL (4.5-5.90); Red Cell Distribution Width 14.8 % (11.8-14.3); White Blood Cell 17.7 10^3/uL (4.4-10.8)
[2024-12-01 06:38] LABS: INR 1.13 (0.9-1.15); Partial Thromboplastin Time 48.6 SEC (24.5-34.5); Prothrombin Time 11.8 sec (9.3-11.8)
[2024-12-01 07:03] LABS: Alanine Aminotransferase 23 U/L (7-40); Alkaline Phosphatase 91 U/L (46-116); Anion Gap 9 (5-15); BUN/Creatinine Ratio 16.3 (10.0-20.0); Carbon Dioxide 25 mmol/L (20-31); Chloride 106 mmol/L (98-107); Potassium 4.1 mmol/L (3.5-5.1); Sodium 140 mmol/L (136-145)
[2024-12-01 07:04] LABS: Albumin 3.5 g/dL (3.2-4.8); Aspartate Aminotransferase 27 U/L (13-40)
[2024-12-01 07:05] LABS: Bilirubin, Total 0.7 mg/dL (0.2-1.0)
[2024-12-01 07:07] LABS: Blood Urea Nitrogen 42 mg/dL (9-23); Glucose 171 mg/dL (74-106); Total Protein 5.4 g/dL (5.7-8.2)
--- NOTE | 2024-12-01 07:25 | ECG ---
[facility] Test Date: 2024-11-30 Test Time: 06:17:01 Pat Name: SERENA DANIEL Department: ED Room: 0217T B Gender: M Flake Drier: david : 1955 Requested By: ANN WEBB Order Number: [id number] Reading MD: Acosta Fay Measurements Intervals [place] Rate: 62 P: 60 UT: 199 QRS: 82 QRSD: 105 T: 36 QT: 472 QTc: 480 Interpretive Statements Sinus rhythm Borderline right axis deviation Borderline prolonged QT interval Electronically Signed On 12-03-2024 14:18:52 PDT by Acosta Fay Please click the below link to view image of tracing.
[2024-12-01] MEDS ORDERED: HEPARIN DRIP/D5W 100UNITS/ML 250 ML IV SCH (09:00)
[2024-12-01] MEDS: ASPirin 81 mg TAB PO SCH (09:00)
--- NOTE | 2024-12-01 09:00 | CONS ---
Pharmacy Clinical Information: CONFIRMING HEPARIN DRIP RATE INCREASED TO 1200 UNITS/HR = 12 ML/HR PER APTT OF 48.6 DRAWN AT 0549. NEXT APTT DRAW SCHEDULED FOR 1400 PER RX PROTOCOL. NIKKI FUENTES PHARMACIST Dec 01, 2024 09:00
[2024-12-01] MEDS: AZITHROMYCIN 500MG/ 250ML 250 ML IV SCH (09:01)
[2024-12-01 09:28] LABS: COVID19 ANTIGEN SOFIA FIA NEGATIVE (NEGATIVE); Rapid Influenza A Negative (Negative); Rapid Influenza B Negative (Negative)
--- NOTE | 2024-12-01 09:49 | DVHPN2 ---
Consult Progress Note Date Seen: Dec 01, 2024 Subjective Review of Systems: CVS:Normal, RESPIRATORY:Normal, NEURO:Normal Other Systems: Denies chest pain or any other cardiac symptoms Objective vital signs Vital Sign Date Time Temp Pulse Resp B/P (MAP) Pulse Ox O2 Delivery O2 Flow Rate FiO2 12/01/24 08:50 97.4 81 18 128/61 (83) 95 97.4 11/30/24 20:00 Nasal Cannula* 2 28 Total Intake and Output 11/30/24 11/30/24 12/01/24 14:59 22:59 06:59 Intake Total 250 ml 680 ml 200 ml Output Total 3 ml Balance 250 ml 677 ml 200 ml medications Current Medications Medications Dose Ordered Sig/Christine Route Start Time Stop Time Status Last Admin Dose Admin Aspirin 81 mg DAILY PO 12/01/24 10:00 12/01/24 09:00 81 MG Ondansetron HCl 4 mg Q4HP PRN IV 11/30/24 12:30 12/01/24 08:04 4 MG Nitroglycerin 0.4 mg Q5MINP PRN SL 11/30/24 12:30 Morphine Sulfate 2 mg Q30M PRN IV 11/30/24 12:30 Dextrose 50 ml UD PRN IV 11/30/24 12:30 Sodium Chloride 1,000 ml @ 75 mls/hr [id number] IV 11/30/24 14:30 11/30/24 15:35 75 MLS/HR Ceftriaxone Sodium 50 ml @ 100 mls/hr DAILY@09 IV 11/30/24 14:30 12/01/24 08:05 100 MLS/HR Azithromycin 250 ml @ 125 mls/hr DAILY IV 12/01/24 10:00 12/01/24 09:01 125 MLS/HR Diagnostic Test (Pha) 1 strip ACHS 11/30/24 17:00 12/01/24 06:26 1 STRIP Insulin Human Regular ACHS SC 11/30/24 17:00 11/30/24 22:15 6 UNITS Trazodone HCl 50 mg HS PRN PO 11/30/24 21:30 12/01/24 00:09 50 MG Atorvastatin Calcium 40 mg HS PO 12/01/24 22:00 Ipratropium [place] 0.5 mg Q6HWA NEB 12/01/24 12:00 Levalbuterol HCl 0.625 mg Q6HR NEB 12/01/24 12:00 Heparin Sodium/ Dextrose 250 ml @ 12 mls/hr [id number] IV 12/01/24 09:00 Examination: LUNGS:Normal, CVS:Abnormal (Systolic muurmur III/), NEURO:Normal laboratory and microbiology Laboratory Tests 12/01/24 05:49 Test 12/01/24 05:49 Range/Units Serum Glucose 171 H 74-106 mg/dL Problem List/Assessment/Plan Problem List/Assessment/Plan (Dr. Fay) * NSTEMI Type II 2/2 PNA- Denies active cardiac symptoms. Negative acute ischemic changes on EKG review. Troponin with peak and fall levels. Normal EF on echo LVEF 60% with normal RV function. Likely type 2 DC secondary to sepsis with PNA. Stop heparin drip. DVT/VTE prophylaxis. * Acute hypoxic respiratory failure/sepsis with pneumonia - continue IV antibiotics, on O2 supplementation at 2 L NC. COVID-19 and influenza A&B results pending. Repeat CXR. * Paroxysmal atrial fibrillation, s/p ablation 09/2024 - currently sinus rhythm. Off DOAC therapy x 1.[address] * Aortic sclerosis, moderate degree - systolic murmur III/. Outpatient follow-up. * Palpitations - continue telemetry monitoring, outpatient Holter monitor. * ROBERT on CKD- avoid nephrotoxic agents. Nephrology on board. Case Discussed with Dr Fay. Continue medical management with heparin times 24-48 hours. Continue aspirin and statin. Negative cardiac symptoms. EKG negative for acute ischemic changes. Outpatient event monitoring for arrhythmias to see if patient is having recurrent episodes of AFib. Off DOAC therapy x 1.[address] at [facility]. Normal EF on echo. No significant valvular structural abnormalities. There is no further cardiac work-up indicated at this time. Follow-up with primary street sprinkler as scheduled. Kindly call if in need to re-consult. Thank you for allowing us to participate in this patient's care. This medical document was created using an electronic medical record system with voice recognition software and computerized dictation system. Although this document has been carefully reviewed, there might still be some phonetic and typographical errors. Occasional wrong-word or ``sound-alike substitutions may have occurred due to the inherent limitations of voice recognition software. These areas are purely typographical due to imperfections of the software programs and do not reflect any compromise in the patient's medical care. Please read the chart carefully and recognize, using context, where these substitutions have occurred. Plan discussed with: Patient, Other Date of Service: Dec 01, 2024 Billing Provider: RACHEAL MCCOY Cardiology Common Codes: [id number] INP/OBS CARE(Mod) RACHEAL MCCOY Dec 01, 2024 09:49
[2024-12-01] MEDS: ENOXAPARIN SOD 40 MG/0.4 ML SYRINGE SC SCH (10:00)
--- NOTE | 2024-12-01 10:50 | DVH ---
CHEST RADIOGRAPH Indication: PNA Technique: Single frontal view of the chest was obtained COMPARISON: XY CHEST PORTABLE on DOS: 11/30/24 FINDINGS: Lines and Tubes: None Lungs: Resolving right upper lobe pneumonia. Pleura: No effusion. No pneumothorax. Cardiomediastinal contours: Unremarkable Bones: Unremarkable IMPRESSION: 1. Resolving right upper lobe pneumonia
--- NOTE | 2024-12-01 11:42 | DVHHPRES ---
Review of Systems Allergies: Coded Allergies: No Known Drug Allergy (Verified Allergy, Unknown, 11/30/24) Medications Current Medications Medications Dose Ordered Sig/Christine Route Start Time Stop Time Status Last Admin Dose Admin Aspirin 81 mg DAILY PO 12/01/24 10:00 12/01/24 09:00 81 MG Ondansetron HCl 4 mg Q4HP PRN IV 11/30/24 12:30 12/01/24 08:04 4 MG Nitroglycerin 0.4 mg Q5MINP PRN SL 11/30/24 12:30 Morphine Sulfate 2 mg Q30M PRN IV 11/30/24 12:30 Dextrose 50 ml UD PRN IV 11/30/24 12:30 Sodium Chloride 1,000 ml @ 75 mls/hr [id number] IV 11/30/24 14:30 11/30/24 15:35 75 MLS/HR Ceftriaxone Sodium 50 ml @ 100 mls/hr DAILY@09 IV 11/30/24 14:30 12/01/24 08:05 100 MLS/HR Azithromycin 250 ml @ 125 mls/hr DAILY IV 12/01/24 10:00 12/01/24 09:01 125 MLS/HR Diagnostic Test (Pha) 1 strip ACHS 11/30/24 17:00 12/01/24 11:03 1 STRIP Insulin Human Regular ACHS SC 11/30/24 17:00 12/01/24 11:14 8 UNITS Trazodone HCl 50 mg HS PRN PO 11/30/24 21:30 12/01/24 00:09 50 MG Atorvastatin Calcium 40 mg HS PO 12/01/24 22:00 Ipratropium [place] 0.5 mg Q6HWA NEB 12/01/24 12:00 Levalbuterol HCl 0.625 mg Q6HR NEB 12/01/24 12:00 Enoxaparin Sodium 40 mg DAILY SC 12/01/24 10:00 Exam Vital Signs Vital Signs Date Time Temp Pulse Resp B/P (MAP) Pulse Ox O2 Delivery O2 Flow Rate FiO2 12/01/24 09:41 97.4 81 18 128/61 95 2.0 28 97.4 11/30/24 20:00 Nasal Cannula* Labs/Xrays Labs Test 12/01/24 10:59 12/01/24 08:45 12/01/24 05:49 11/30/24 13:10 Range/Units POC Glucose 321 H 70-106 mg/dl Influenza Type A Antigen Negative Negative Influenza Type B Antigen Negative Negative SARS-CoV-2 Antigen (Rapid) Negative NEGATIVE White Blood Count 17.7 #H 4.4-10.8 10^3/uL Red Blood Count 3.97 L 4.5-5.90 10^6/uL Hemoglobin 12.8 L 13.5-17.5 g/dL Hematocrit 37.9 #L 41.0-53.0 % Mean Corpuscular Volume 95.5 80.0-100.0 fL Mean Corpuscular Hemoglobin 32.3 H 28.0-32.0 pg Mean Corpuscular Hemoglobin Concent 33.8 32.0-36.0 g/dL Red Cell Distribution Width 14.8 H 11.8-14.3 % Platelet Count 155 140-450 10^3/uL Mean Platelet Volume 9.7 6.9-10.8 fL Neutrophils (%) (Auto) 68.4 37.0-80.0 % Lymphocytes (%) (Auto) 26.7 10.0-50.0 % Monocytes (%) (Auto) 4.5 0.0-12.0 % Eosinophils (%) (Auto) 0.2 0.0-7.0 % Basophils (%) (Auto) 0.2 0.0-2.0 % Neutrophils # (Auto) 12.2 H 1.6-8.6 10 ^3/uL Lymphocytes # (Auto) 4.7 0.4-5.4 10 ^3/uL Monocytes # (Auto) 0.8 0-1.3 10 ^3/uL Eosinophils # (Auto) 0 0-0.8 10 ^3/uL Basophils # (Auto) 0 0-0.2 10 ^3/uL Nucleated Red Blood Cells 0.2 % Prothrombin Time 11.8 9.3-11.8 sec Prothrombin Time INR 1.13 0.9-1.15 Activated Partial Thromboplast Time 48.6 H 24.5-34.5 SEC D-Dimer, Quantitative 0.37 0.0-0.49 mg/L FEU Sodium Level 140 136-145 mmol/L Potassium Level 4.1 3.5-5.1 mmol/L Chloride Level 106 98-107 mmol/L Carbon Dioxide Level 25 20-31 mmol/L Anion Gap 9 5-15 Blood Urea Nitrogen 42 #H 9-23 mg/dL Creatinine 2.58 H 0.700-1.30 mg/dL Glomerular Filtration Rate Calc 26 >90 mL/min BUN/Creatinine Ratio 16.3 10.0-20.0 Serum Glucose 171 H 74-106 mg/dL Calcium Level 9.0 8.7-10.4 mg/dL Total Bilirubin 0.7 0.2-1.0 mg/dL Aspartate Amino Transferase (AST) 27 13-40 U/L Alanine Aminotransferase (ALT) 23 7-40 U/L Alkaline Phosphatase 91 46-116 U/L Troponin I High Sensitivity 999 *H </=54 ng/L Total Protein 5.4 L 5.7-8.2 g/dL Albumin 3.5 3.2-4.8 g/dL Urine Color Light-yellow Yellow Urine Clarity Clear Clear Urine pH 5.5 5.0-9.0 Urine Specific [place] 1.012 1.001-1.035 Urine Protein Negative Negative Urine Ketones Negative Negative Urine Blood Negative Negative /uL Urine Nitrite Negative Negative Urine Bilirubin Negative Negative Urine Urobilinogen Normal Negative mg/dL Urine Leukocyte Esterase Negative Negative /uL Urine RBC <1 0 - 3 /hpf Urine Microscopic WBC < 1 0-3 /HPF Urine Squamous Epithelial Cells None seen <5 /hpf Urine Bacteria None seen None Seen /hpf Urine Glucose 3+ H Normal mg/dL Test 11/30/24 09:36 11/30/24 08:34 11/30/24 06:44 Range/Units Magnesium Level 2.2 1.6-2.6 mg/dL Triglycerides Level 56 < 150 mg/dL Cholesterol Level 102 < 200 mg/dL LDL Cholesterol 36 < 100 mg/dL HDL Cholesterol 42 40-59 mg/dL Lactic Acid Level 0.7 0.4-2.0 mmol/L Hemoglobin A1c 5.7 <5.7 % A1C B-Type Natriuretic Peptide 242.48 0-100 pg/mL Microbiology Date/Time Source Procedure Growth Status 11/30/24 08:43 Blood Blood Culture - Preliminary NO GROWTH AFTER 24 HOURS OF INCUBATION. Resulted Assessment/Plan My Orders Orders - AMARILIS CLARK RESDISHUBHAM Procedure Category Date Status Time Mrsa Screen JIM 12/01/24 In Process 08:36 Atorvastatin (Lipitor) PHA 12/01/24 In Process 22:00 Drug Screen LAB 12/01/24 Logged 08:36 Ipratropium Medneb PHA 12/01/24 In Process (Atrovent Medneb) 12:00 Levalbuterol Hcl PHA 12/01/24 In Process (Xopenex Medneb) 12:00 * Clerical Proofreader CONS 12/01/24 Verified Consult AMARILIS CLARK Dec 01, 2024 11:42
[2024-12-01] MEDS: SODIUM CHLORIDE 0.9% 1,000 ML IV ONE (12:18)
[2024-12-01] MEDS: LEVALBUTEROL HCL 1.25 MG/3 ML NEB NEB SCH (12:20)
[2024-12-01] MEDS: IPRATROPIUM BROM 0.5 MG/2.5ML INH SOL NEB SCH (12:20)
[2024-12-01] MEDS: PANTOPRAZOLE 40 MG/10 ML VIAL INJ IV ONE (12:20)
[2024-12-01] MEDS ORDERED: INSU100I70 SC (13:13)
[2024-12-01] MEDS ORDERED: HYDROcodone-ACET 5/325MG TAB PO PRN (14:00)
[2024-12-01 14:27] LABS: Amphetamine Screen, Urine Neg (NEGATIVE); Barbiturate Scree,Urine Neg (NEGATIVE); Benzodiazephine Screen, Urine Neg (NEGATIVE); Cocaine Screen, Urine Neg (NEGATIVE); Opiate Scree,Urine Neg (NEGATIVE); Phencyclidine Screen, Urine Neg (NEGATIVE)
[2024-12-01 14:29] LABS: INR 1.11 (0.9-1.15); Partial Thromboplastin Time 37.6 SEC (24.5-34.5); Prothrombin Time 11.6 sec (9.3-11.8)
[2024-12-01 14:29] LABS: Cannabinoid Screen, Urine Neg (NEGATIVE)
[2024-12-01] MEDS: ATORVASTATIN 20 MG TAB PO ONE (14:32)
[2024-12-01] MEDS: amLODIPine BESYLATE 5 MG TAB PO ONE (14:58)
--- NOTE | 2024-12-01 15:55 | DVHPNRES ---
Progress Note Date Seen: Dec 01, 2024 Resident Creating Document: AMARILIS CLARK CHRISSIE Has the PT tested + for MRSA If YES, has PT been informed?: No Medical Necessity Reason Pt with a Central, PICC or Fol: No Subjective Review of Systems This is a 69-year-old male with past medical history of CHF, hypertension, diabetes, paroxysmal atrial flutter (status post cardiac ablation), insomnia and sleep apnea came to the hospital due to body shaking and chills. Per patient, he became of sleep at 2:00 a.m. last day and was feeling chill called and had generalized body shaking, he slipped back but upon waking up from sleep still the patient had body shaking. He also reports palpitation, nausea and vomiting. He denies fever, shortness of breaths, chest pain, any recent bowel and bladder habit changes. Patient had a sick contact with the son who was recently admitted for pneumonia. PMHx: CHF, hypertension, diabetes, paroxysmal atrial flutter (status post cardiac ablation), insomnia and sleep apnea PSHx: Not significant Family history: Noncontributory Social history: Denies smoking, or any other drug use. Lives at home with family. Home medication: Lantus, metoprolol, allopurinol, amlodipine, atorvastatin, finasteride, gabapentin and trazodone Allergic history: No known allergy Patient reports: No new complaints, Feels better Objective vital signs Vital Sign Date Time Temp Pulse Resp B/P (MAP) Pulse Ox O2 Delivery O2 Flow Rate FiO2 12/01/24 14:58 125/57 12/01/24 12:20 95 Room Air 0.0 12/01/24 12:20 21 12/01/24 12:20 77 18 12/01/24 09:41 97.4 97.4 Total Intake and Output 11/30/24 11/30/24 12/01/24 14:59 22:59 06:59 Intake Total 250 ml 680 ml 200 ml Output Total 3 ml Balance 250 ml 677 ml 200 ml medications Current Medications Medications Dose Ordered Sig/Christine Route Start Time Stop Time Status Last Admin Dose Admin Aspirin 81 mg DAILY PO 12/01/24 10:00 12/01/24 09:00 81 MG Ondansetron HCl 4 mg Q4HP PRN IV 11/30/24 12:30 12/01/24 08:04 4 MG Nitroglycerin 0.4 mg Q5MINP PRN SL 11/30/24 12:30 Morphine Sulfate 2 mg Q30M PRN IV 11/30/24 12:30 Dextrose 50 ml UD PRN IV 11/30/24 12:30 Ceftriaxone Sodium 50 ml @ 100 mls/hr DAILY@09 IV 11/30/24 14:30 12/01/24 08:05 100 MLS/HR Azithromycin 250 ml @ 125 mls/hr DAILY IV 12/01/24 10:00 12/01/24 09:01 125 MLS/HR Diagnostic Test (Pha) 1 strip ACHS 11/30/24 17:00 12/01/24 11:03 1 STRIP Insulin Human Regular ACHS SC 11/30/24 17:00 12/01/24 11:14 8 UNITS Atorvastatin Calcium 40 mg HS PO 12/01/24 22:00 Ipratropium [place] 0.5 mg Q6HWA NEB 12/01/24 12:00 12/01/24 12:20 0.5 MG Levalbuterol HCl 0.625 mg Q6HR NEB 12/01/24 12:00 12/01/24 12:20 0.625 MG Enoxaparin Sodium 40 mg DAILY SC 12/01/24 10:00 Pantoprazole Sodium 40 mg DAILY IV 12/02/24 10:00 Allopurinol 200 mg DAILY PO 12/02/24 10:00 Finasteride 5 mg DAILY PO 12/02/24 10:00 Furosemide 20 mg DAILY PO 12/02/24 10:00 Gabapentin 300 mg BID PO 12/01/24 22:00 Metoprolol Tartrate 25 mg BID PO 12/01/24 22:00 Trazodone HCl 50 mg QHSP PRN PO 12/01/24 13:45 Amlodipine Besylate 10 mg DAILY PO 12/02/24 10:00 Acetaminophen/ Hydrocodone Bitart 1 tab Q4HPRN PRN PO 12/01/24 14:00 Examination General Appearance: Alert, Oriented X3, Cooperative, No acute distress HEENT: Atraumatic, PERRLA, EOMI, Mucous membrane moist/pink Respiratory: Clear to auscultation, Normal air movement Cardiovascular: Regular rate, Normal S1, Normal S2, No murmurs, no chest wall tenderness Abdominal: Normal bowel sounds, Soft, No tenderness, No hepatospenomegaly, No masses Extremities: No clubbing, No cyanosis, No edema, Normal pulses, No tenderness/swelling Skin: No rashes, No breakdown, No significant lesion Neuro: Normal gait, Normal speech, Strength at 5/5 X4 ext, Normal tone, Sensation intact, Cranial nerves 3-12 NL, Reflexes 2+ Psych/Mental Status: Mental status NL, Mood NL laboratory and microbiology Laboratory Tests 12/01/24 05:49 Test 12/01/24 05:49 Range/Units Serum Glucose 171 H 74-106 mg/dL Microbiology Date/Time Source Procedure Growth Status 11/30/24 08:43 Blood Blood Culture - Preliminary NO GROWTH AFTER 24 HOURS OF INCUBATION. Resulted Labs and/or images reviewed: Labs reviewed by me, Image(s) reviewed by me Problem List/Assessment/Plan Problem List/Assessment/Plan Sepsis, likely due to pneumonia Pneumonia, likely due to Gram-positive Gram-negative bacteria, atypical/viral Left pleural effusion Chest x-ray shows right upper lobe airspace consolidation. Patchy left mid lung airspace opacification, with small left pleural effusion Sputum, culture and sensitive COVID-19 and flu are negative Empiric antibiotic Rocephin and azithromycin NSTEMI, likely type 2, likely due to above History of hypertension History of sleep apnea Paroxysmal atrial fibrillation/flutter, status post ablation Aortic sclerosis EKGs shows normal sinus rhythm with no acute ST or T-wave changes Echo shows LV EF 60% with normal RV function Trop I raised, downtrending Cardiology on the board, recommended medical management Aspirin Atorvastatin Continue home meds including amlodipine and metoprolol ROBERT on CKD, baseline is not available Nephrology on the board Diabetes type 2 with hyperglycemia Lantus 20 units daily Insulin regular according to moderate SS Insomnia Continue trazodone and melatonin DIET: Cardiac diet DVT PROPHYLAXIS: Lovenox GI PROPHYLAXIS:: Protonix CODE STATUS: Goal of care discussed for more than 18 minutes, full code DISPOSITION: Telemetry Patient is [place] patient, stable to be transferred, but the patient denies to be transferred Patient's status and plan discussed with the patient. Case discussed with Dr. Dubose. Plan discussed with: Patient, Other (RN) My Orders My Orders Orders - AMARILIS CLARK RESDISHUBHAM Procedure Category Date Status Time Mrsa Screen JIM 12/01/24 In Process 08:36 Atorvastatin (Lipitor) PHA 12/01/24 In Process 22:00 Ipratropium Medneb PHA 12/01/24 In Process (Atrovent Medneb) 12:00 Levalbuterol Hcl PHA 12/01/24 In Process (Xopenex Medneb) 12:00 * Panel Gluer CONS 12/01/24 Transmitted Consult Orthostatic Vital ORDERS 12/01/24 Transmitted Signs 11:50 Pantoprazole PHA 12/02/24 In Process (Protonix) 10:00 Allopurinol Tablet PHA 12/02/24 In Process (Zyloprim Tablet) 10:00 Finasteride Tablet PHA 12/02/24 In Process (Proscar Tablet) 10:00 Furosemide Tablet PHA 12/02/24 In Process (Lasix Tablet) 10:00 Gabapentin Capsule PHA 12/01/24 In Process (Neurontin Capsule) 22:00 Metoprolol Tartrate PHA 12/01/24 In Process Tablet (Lopressor Ta 22:00 Trazodone Hcl PHA 12/01/24 In Process (Desyrel) 13:45 Amlodipine Tablet PHA 12/02/24 In Process (Norvasc Tablet) 10:00 Hydrocodone-Acet PHA 12/01/24 In Process 5/325mg Tab (Pearce 14:00 AMARILIS CLARK RESGUILHERME Dec 01, 2024 15:55
[2024-12-01 16:07] LABS: Protein, Urine 28.4 mg/dL (1-14)
[2024-12-01 16:09] LABS: Creatinine, Urine 95.32 mg/dL (30.0-125.0); Urine Protein/Creatinine Ratio 0.3
--- NOTE | 2024-12-01 16:45 | DVHCONRES ---
Date Seen: Dec 01, 2024 Resident Creating Document: FRAN AGUILAR RESIDENT Referring Physician ALY Molina Reason for Consultation ROBERT History of Present Illness 69-year-old male with past medical history of heart failure, chronic kidney disease stage 4, hypertension, type 2 diabetes, atrial fibrillation status post cardiac ablation, who was transferred from [facility] for evaluation of chest pain and elevated troponins. Patient woke up yesterday with chills and tremors which he describes as fine, intentional affecting upper limbs which worsened with movement and stress, improved with rest. No history of seizure or focal neurological signs no smoking alcohol or drug use reported. Patient was started on ACS protocol including aspirin, enoxaparin, atorvastatin and metoprolol. Troponin peaks until 1999's and now trending down to 900's. He remains hemodynamically stable. Head CT was not remarkable. Chest x-ray showed resolving pneumonia, he is currently on ceftriaxone. The nephrology team was consulted due to abnormal renal function, currently is improving. Laboratory findings showed some nephrotic proteinuria range. Other labs are pending. Past Surgical History Atrial fibrillation status post cardiac ablation. Family History: Diabetes mellitus G8 MOTHER G8 FATHER Allergies: Coded Allergies: No Known Drug Allergy (Verified Allergy, Unknown, 11/30/24) Home Meds Reported Medications Apixaban Base (ELIQUIS) 5 Mg Tab, 1 TAB PO BID for 45 Days, #90 12/01/24 Insulin Glargine-Yfgn (Insulin Glargine) 100 Unit/Ml Inj, UNIT SC UD 12/01/24 Allopurinol (Allopurinol) 100 Mg Tab, 2 TAB PO DAILY 12/01/24 Montelukast Sodium (MONTELUKAST SODIUM) 10 Mg Tab, 1 TAB PO DAILY 12/01/24 Gabapentin (Gabapentin) 300 Mg Cap, 1 CAP PO BID 12/01/24 Metoprolol Tartrate (Lopressor) 25 Mg Tb, 1 TAB PO BID 12/01/24 Famotidine (Famotidine) 40 Mg Tab, 1 TAB PO BID 12/01/24 Fluticasone-Salmeterol ([place] Inhub 250-50 Mcg/Dose) 1 Aer Aer, 1 PUFF INH BID 12/01/24 Insulin Lispro (Humalog Kwikpen) 100 Unit/Ml Inj, UNITS SC UD 12/01/24 Trazodone Hcl (Trazodone Hcl) 50 Mg Tab, 1-3 TAB PO QHSP PRN for FOR INSOMNIA 11/30/24 Amlodipine Besylate (Amlodipine Besylate) 10 Mg Tab, 1 TAB PO DAILY 11/30/24 Furosemide (Furosemide) 20 Mg Tab, 1 TAB PO DAILY 11/30/24 Atorvastatin Calcium (ATORVASTATIN CALCIUM) 40 Mg Tab, 1 TAB PO DAILY 11/30/24 Finasteride (Finasteride) 5 Mg Tab, 1 TAB PO DAILY 11/30/24 Current Medications Current Medications Medications (Trade) Dose Ordered Sig/Christine Route PRN Reason Start Time Stop Time Status Last Admin Aspirin 81 mg DAILY PO 12/01/24 10:00 12/01/24 09:00 Diagnostic Test (Pha) (Accu-Chek Comfort Curve T) 1 strip Q6HR 11/30/24 18:00 11/30/24 14:59 DC Insulin Human Regular (InsuLIN R) Q6HR SC 11/30/24 18:00 11/30/24 14:45 DC Azithromycin 250 ml @ 125 mls/hr DAILY IV 12/01/24 10:00 12/01/24 09:01 Diagnostic Test (Pha) (Accu-Chek Comfort Curve T) 1 strip ACHS 11/30/24 17:00 12/01/24 16:21 Insulin Human Regular (InsuLIN R) ACHS SC 11/30/24 17:00 12/01/24 11:14 Heparin Sodium/ Dextrose 250 ml @ 8 mls/hr Q24H IV 11/30/24 17:30 12/01/24 00:32 DC 11/30/24 17:40 Trazodone HCl (Desyrel) 50 mg HS PRN PO FOR INSOMNIA 11/30/24 21:30 12/01/24 14:52 DC 12/01/24 00:09 Heparin Sodium/ Dextrose 250 ml @ 10 mls/hr Q24H IV 12/01/24 00:45 12/01/24 08:56 DC 12/01/24 00:48 Atorvastatin Calcium (Lipitor) 40 mg HS PO 12/01/24 22:00 Ipratropium [place] (Atrovent Medneb) 0.5 mg Q6HWA NEB 12/01/24 12:00 12/01/24 12:20 Levalbuterol HCl (Xopenex Medneb) 0.625 mg Q6HR NEB 12/01/24 12:00 12/01/24 12:20 Heparin Sodium/ Dextrose 250 ml @ 12 mls/hr [id number] IV 12/01/24 09:00 12/01/24 09:41 DC Enoxaparin Sodium (Lovenox) 40 mg DAILY SC 12/01/24 10:00 Pantoprazole Sodium (Protonix) 40 mg DAILY IV 12/02/24 10:00 Allopurinol (Zyloprim Tablet) 200 mg DAILY PO 12/02/24 10:00 Finasteride (Proscar Tablet) 5 mg DAILY PO 12/02/24 10:00 Furosemide (Lasix Tablet) 20 mg DAILY PO 12/02/24 10:00 Gabapentin (Neurontin Capsule) 300 mg BID PO 12/01/24 22:00 Metoprolol Tartrate (Lopressor Tablet) 25 mg BID PO 12/01/24 22:00 Trazodone HCl (Desyrel) 50 mg QHSP PRN PO FOR INSOMNIA 12/01/24 13:45 Amlodipine Besylate (Norvasc Tablet) 10 mg DAILY PO 12/02/24 10:00 Acetaminophen/ Hydrocodone Bitart ([place] 5/325MG Tab) 1 tab Q4HPRN PRN PO MODERATE PAIN (4-6 PAIN SCALE) 12/01/24 14:00 Melatonin (Melatonin) 10 mg HS PO 12/01/24 22:00 UNV Review of Systems General: Chills, malaise, weakness Cardiac: Chest discomfort, history of atrial fibrillation Pulmonary: Improving cough, no shortness of breaths. GI: No nausea or vomiting no dysuria or hematuria Neurology: Tremors, no focal deficits. Musculoskeletal: No myalgias Skin: No rashes or erythema Vital Signs Vital Signs Date Time Temp Pulse Resp B/P (MAP) Pulse Ox O2 Delivery O2 Flow Rate FiO2 12/01/24 14:58 125/57 12/01/24 12:28 73 16 100 12/01/24 12:20 Room Air 0.0 12/01/24 12:20 21 12/01/24 09:41 97.4 97.4 Physical Exam General Appearance: Alert, Oriented X3, Cooperative, No acute distress HEENT: Atraumatic, PERRLA, EOMI, Mucous membrane moist/pink Respiratory: Clear to auscultation, Normal air movement Cardiovascular: Regular rate, Normal S1, Normal S2, No murmurs, no chest wall tenderness Abdominal: Normal bowel sounds, Soft, No tenderness, No hepatospenomegaly, No masses Extremities: No clubbing, No cyanosis, No edema, Normal pulses, No tenderness/swelling Skin: No rashes, No breakdown, No significant lesion Neuro: Normal gait, Normal speech, Strength at 5/5 X4 ext, Normal tone, Sensation intact, Cranial nerves 3-12 NL, Reflexes 2+ Psych/Mental Status: Mental status NL, Mood NL Labs/Diagnostic Data Labs Test 12/01/24 14:05 12/01/24 14:00 12/01/24 10:59 12/01/24 08:45 Range/Units Urine Creatinine 95.32 30.0-125.0 mg/dL Urine Protein/Creatinine Ratio 0.30 Urine Sodium 19 L 40-220 mmol/L Urine Total Protein 28.4 H 1-14 mg/dL Urine Opiates Screen Neg NEGATIVE Urine Fentanyl Screen Neg NEGATIVE Urine Barbiturates Screen Neg NEGATIVE Urine Phencyclidine Screen Neg NEGATIVE Urine Amphetamines Screen Neg NEGATIVE Urine Benzodiazepines Screen Neg NEGATIVE Urine Cocaine Screen Neg NEGATIVE Urine Cannabinoids Screen Neg NEGATIVE Prothrombin Time 11.6 9.3-11.8 sec Prothrombin Time INR 1.11 0.9-1.15 Activated Partial Thromboplast Time 37.6 H 24.5-34.5 SEC POC Glucose 321 H 70-106 mg/dl Influenza Type A Antigen Negative Negative Influenza Type B Antigen Negative Negative SARS-CoV-2 Antigen (Rapid) Negative NEGATIVE Test 12/01/24 05:49 11/30/24 13:10 11/30/24 09:36 11/30/24 08:34 Range/Units White Blood Count 17.7 #H 4.4-10.8 10^3/uL Red Blood Count 3.97 L 4.5-5.90 10^6/uL Hemoglobin 12.8 L 13.5-17.5 g/dL Hematocrit 37.9 #L 41.0-53.0 % Mean Corpuscular Volume 95.5 80.0-100.0 fL Mean Corpuscular Hemoglobin 32.3 H 28.0-32.0 pg Mean Corpuscular Hemoglobin Concent 33.8 32.0-36.0 g/dL Red Cell Distribution Width 14.8 H 11.8-14.3 % Platelet Count 155 140-450 10^3/uL Mean Platelet Volume 9.7 6.9-10.8 fL Neutrophils (%) (Auto) 68.4 37.0-80.0 % Lymphocytes (%) (Auto) 26.7 10.0-50.0 % Monocytes (%) (Auto) 4.5 0.0-12.0 % Eosinophils (%) (Auto) 0.2 0.0-7.0 % Basophils (%) (Auto) 0.2 0.0-2.0 % Neutrophils # (Auto) 12.2 H 1.6-8.6 10 ^3/uL Lymphocytes # (Auto) 4.7 0.4-5.4 10 ^3/uL Monocytes # (Auto) 0.8 0-1.3 10 ^3/uL Eosinophils # (Auto) 0 0-0.8 10 ^3/uL Basophils # (Auto) 0 0-0.2 10 ^3/uL Nucleated Red Blood Cells 0.2 % D-Dimer, Quantitative 0.37 0.0-0.49 mg/L FEU Sodium Level 140 136-145 mmol/L Potassium Level 4.1 3.5-5.1 mmol/L Chloride Level 106 98-107 mmol/L Carbon Dioxide Level 25 20-31 mmol/L Anion Gap 9 5-15 Blood Urea Nitrogen 42 #H 9-23 mg/dL Creatinine 2.58 H 0.700-1.30 mg/dL Glomerular Filtration Rate Calc 26 >90 mL/min BUN/Creatinine Ratio 16.3 10.0-20.0 Serum Glucose 171 H 74-106 mg/dL Calcium Level 9.0 8.7-10.4 mg/dL Total Bilirubin 0.7 0.2-1.0 mg/dL Aspartate Amino Transferase (AST) 27 13-40 U/L Alanine Aminotransferase (ALT) 23 7-40 U/L Alkaline Phosphatase 91 46-116 U/L Troponin I High Sensitivity 999 *H </=54 ng/L Total Protein 5.4 L 5.7-8.2 g/dL Albumin 3.5 3.2-4.8 g/dL Urine Color Light-yellow Yellow Urine Clarity Clear Clear Urine pH 5.5 5.0-9.0 Urine Specific [place] 1.012 1.001-1.035 Urine Protein Negative Negative Urine Ketones Negative Negative Urine Blood Negative Negative /uL Urine Nitrite Negative Negative Urine Bilirubin Negative Negative Urine Urobilinogen Normal Negative mg/dL Urine Leukocyte Esterase Negative Negative /uL Urine RBC <1 0 - 3 /hpf Urine Microscopic WBC < 1 0-3 /HPF Urine Squamous Epithelial Cells None seen <5 /hpf Urine Bacteria None seen None Seen /hpf Urine Glucose 3+ H Normal mg/dL Magnesium Level 2.2 1.6-2.6 mg/dL Triglycerides Level 56 < 150 mg/dL Cholesterol Level 102 < 200 mg/dL LDL Cholesterol 36 < 100 mg/dL HDL Cholesterol 42 40-59 mg/dL Lactic Acid Level 0.7 0.4-2.0 mmol/L Test 11/30/24 06:44 Range/Units Hemoglobin A1c 5.7 <5.7 % A1C B-Type Natriuretic Peptide 242.48 0-100 pg/mL Microbiology Date/Time Source Procedure Growth Status 11/30/24 08:43 Blood Blood Culture - Preliminary NO GROWTH AFTER 24 HOURS OF INCUBATION. Resulted Assessment Assessment: Acute kidney injury on chronic kidney disease stage 4 secondary to hemodynamic mediated NSTEMI Type II 2/2 Paroxysmal atrial fibrillation, s/p ablation 09/2024 - currently sinus rhythm. Aortic sclerosis, moderate degree - systolic murmur III/. Type 2 diabetes Heart failure Essential tremor Sepsis Plan: Continue renal protective strategies Avoid nephrotoxins such as NSAIDs, IV contrast Renal diet strict I&Os Monitor renal function electrolytes daily Vitamin-D levels Phosphorus Magnesium Hemoglobin A1c Parathyroid hormone levels Urine protein/creatinine levels Sepsis w/u by Primary team Maintain strict fluid balance and renal dosing of medications. Case discussed with Dr. Healy Goals of care discussed with the patient for 21 minutes Code status: Full code Patient seen and examined by myself in rounds today with the medicien resident, I agree with his assessment and plan Plan discussed with: Patient AVINASH RadhaFRAN Dec 01, 2024 16:45 RANDY HEALY MD Dec 01, 2024 16:53
[2024-12-01 17:29] LABS: Magnesium 1.8 mg/dL (1.6-2.6)
[2024-12-01 17:31] LABS: Phosphorus 2.5 mg/dL (2.4-5.1)
[2024-12-01] MEDS: METOPROLOL TARTRATE 25 MG TAB PO SCH (20:58)
[2024-12-01] MEDS: GABAPENTIN 300 MG CAP PO SCH (20:58)
[2024-12-01] MEDS: ATORVASTATIN 20 MG TAB PO SCH (20:59)
[2024-12-01] MEDS: ACETAMINOPHEN 325 MG TAB PO PRN (20:59)
[2024-12-02] MEDS: MELATONIN 5 MG TAB PO SCH (02:15)
[2024-12-02] MEDS: traZODone HCL 50 MG TAB PO PRN (02:15)
[2024-12-02 04:55] VITALS: BP 110/50; PULSE 55; RESP 16; TEMP 98; O2SAT 93
[2024-12-02 06:13] VITALS: PULSE 67; RESP 18; O2SAT 91
[2024-12-02 06:19] VITALS: PULSE 65; RESP 18; O2SAT 97
[2024-12-02 07:54] LABS: Basophils # (auto) 0 10 ^3/uL (0-0.2); Basophils % (auto) 0.1 % (0.0-2.0); Eosinophils # (auto) 0.4 10 ^3/uL (0-0.8); Eosinophils % (auto) 3.1 % (0.0-7.0); Hematocrit 36.5 % (41.0-53.0); Hemoglobin 12.7 g/dL (13.5-17.5); Lymphocytes # (auto) 5.1 10 ^3/uL (0.4-5.4); Mean Corpuscular Hemoglobin 32.7 pg (28.0-32.0); Mean Corpuscular Hgb Conc. 34.7 g/dL (32.0-36.0); Mean Corpuscular Volume 94.2 fL (80.0-100.0); Monocytes # (auto) 1.2 10 ^3/uL (0-1.3); Monocytes % (auto) 9.9 % (0.0-12.0); Neutrophils # (auto) 5.7 10 ^3/uL (1.6-8.6); Neutrophils % (auto) 45.9 % (37.0-80.0); Nucleated Red Blood Cells % 0.3 %; Platelet Count (auto) 149 10^3/uL (140-450); Red Blood Cells 3.88 10^6/uL (4.5-5.90); Red Cell Distribution Width 15.2 % (11.8-14.3); White Blood Cell 12.3 10^3/uL (4.4-10.8)
[2024-12-02 08:00] VITALS: PULSE 69
[2024-12-02 08:14] LABS: Anion Gap 8 (5-15); Carbon Dioxide 26 mmol/L (20-31); Chloride 104 mmol/L (98-107); Potassium 3.7 mmol/L (3.5-5.1); Sodium 138 mmol/L (136-145)
[2024-12-02 08:15] LABS: Calcium 9.1 mg/dL (8.7-10.4)
[2024-12-02 08:20] LABS: BUN/Creatinine Ratio 14.3 (10.0-20.0)
[2024-12-02 08:21] LABS: Blood Urea Nitrogen 32 mg/dL (9-23); Glucose 174 mg/dL (74-106)
[2024-12-02 09:00] VITALS: BP 123/54; PULSE 68; RESP 18; TEMP 99.2; O2SAT 91
[2024-12-02] MEDS: PANTOPRAZOLE 40 MG/10 ML VIAL INJ IV SCH (10:00)
[2024-12-02] MEDS: FUROSEMIDE 20 MG TAB PO SCH (10:00)
[2024-12-02] MEDS ORDERED: DOXY1CAP58 PO (10:25)
[2024-12-02 10:38] VITALS: BP 116/51; PULSE 62
[2024-12-02] MEDS: FINASTERIDE 5 MG TAB PO SCH (10:53)
[2024-12-02] MEDS: ALLOPURINOL 100 MG TAB PO SCH (10:54)
[2024-12-02] MEDS: amLODIPine BESYLATE 5 MG TAB PO SCH (10:55)
[2024-12-02] MEDS: DOXYCYCLINE 100 MG TAB/CAP PO ONE (11:00)
--- NOTE | 2024-12-02 16:10 | DVHPN2 ---
Progress Note Date Seen: Dec 02, 2024 Resident Creating Document: FRAN AGUILAR RESIDENT Has the PT tested + for MRSA If YES, has PT been informed?: No Medical Necessity Reason Pt with a Central, PICC or Fol: No Subjective Review of Systems From nephrology standpoint the patient has now returned to baseline, electrolytes are within normal limits BUN and creatinine have returned to baseline levels) chronic kidney disease stage 4). No further evidence of acute kidney injury. We strongly recommend outpatient Nephrology follow-up for continue CKD management. Patient reports: Feels better Review of Systems: HEENT:Normal, CVS:Normal, RESPIRATORY:Normal, GI:Normal, :Normal, MSK:Normal, NEURO:Normal Other Systems: Patient seen and examined by myself today in follow-up with the medicine resident, I agree with the assessment and plan Objective vital signs Vital Sign Date Time Temp Pulse Resp B/P (MAP) Pulse Ox O2 Delivery O2 Flow Rate FiO2 12/02/24 10:55 123/54 12/02/24 10:54 68 12/02/24 09:00 99.2 18 91 99.2 12/02/24 08:00 Room Air* 0 N/A Nasal Cannula* Total Intake and Output 12/01/24 12/01/24 12/02/24 15:00 23:00 07:00 Intake Total 300 ml 400 ml 400 ml Output Total 400 ml Balance 300 ml 0 ml 400 ml Examination: GENERAL:Normal, HEENT:Normal, NECK:Normal, LUNGS:Normal, CVS:Normal, ABDOMEN:Normal, MSK:Normal, SKIN:Normal, NEURO:Normal, :Normal laboratory and microbiology Laboratory Tests 12/02/24 06:24 Test 12/02/24 06:24 Range/Units Serum Glucose 174 H 74-106 mg/dL Microbiology Date/Time Source Procedure Growth Status 11/30/24 08:43 Blood Blood Culture - Preliminary NO GROWTH AFTER 48 HOURS OF INCUBATION. Resulted Problem List/Assessment/Plan Problem List/Assessment/Plan Acute kidney injury on chronic kidney disease stage 4 secondary to hemodynamic mediated, returned to baseline NSTEMI Type II 2/2 Paroxysmal atrial fibrillation, s/p ablation 09/2024 - currently sinus rhythm. Aortic sclerosis, moderate degree - systolic murmur III/. Type 2 diabetes Heart failure Essential tremor Sepsis Plan: Patient is cleared from discharge, follow up with the Nephrology for chronic kidney disease management Continue renal protective strategies Maintain strict fluid balance and renal dosing of medications. Case discussed with Dr. Healy Goals of care discussed with the patient for 21 minutes Code status: Full code Plan discussed with: Patient FRAN AGUILAR RESIDENT Dec 02, 2024 16:10 RANDY HEALY MD Dec 03, 2024 12:17
--- NOTE | 2024-12-02 16:30 | DVHDSRES ---
Discharge Summary Date of Admission Resident Creating Document: AMARILIS CLARK RESDIENT Nov 30, 2024 at 12:30 Date of Discharge: Dec 02, 2024 Admitting Diagnosis NSTEMI Labs/Diagnostic Data: Laboratory Results Test 12/02/24 06:24 12/02/24 05:27 12/01/24 14:05 12/01/24 14:00 White Blood Count 12.3 10^3/uL (4.4-10.8) Red Blood Count 3.88 10^6/uL (4.5-5.90) Hemoglobin 12.7 g/dL (13.5-17.5) Hematocrit 36.5 % (41.0-53.0) Mean Corpuscular Volume 94.2 fL (80.0-100.0) Mean Corpuscular Hemoglobin 32.7 pg (28.0-32.0) Mean Corpuscular Hemoglobin Concent 34.7 g/dL (32.0-36.0) Red Cell Distribution Width 15.2 % (11.8-14.3) Platelet Count 149 10^3/uL (140-450) Mean Platelet Volume 9.4 fL (6.9-10.8) Neutrophils (%) (Auto) 45.9 % (37.0-80.0) Lymphocytes (%) (Auto) 41.0 % (10.0-50.0) Monocytes (%) (Auto) 9.9 % (0.0-12.0) Eosinophils (%) (Auto) 3.1 % (0.0-7.0) Basophils (%) (Auto) 0.1 % (0.0-2.0) Neutrophils # (Auto) 5.7 10 ^3/uL (1.6-8.6) Lymphocytes # (Auto) 5.1 10 ^3/uL (0.4-5.4) Monocytes # (Auto) 1.2 10 ^3/uL (0-1.3) Eosinophils # (Auto) 0.4 10 ^3/uL (0-0.8) Basophils # (Auto) 0 10 ^3/uL (0-0.2) Nucleated Red Blood Cells 0.3 % Sodium Level 138 mmol/L (136-145) Potassium Level 3.7 mmol/L (3.5-5.1) Chloride Level 104 mmol/L (98-107) Carbon Dioxide Level 26 mmol/L (20-31) Anion Gap 8 (5-15) Blood Urea Nitrogen 32 mg/dL (9-23) Creatinine 2.23 mg/dL (0.700-1.30) Glomerular Filtration Rate Calc 31 mL/min (>90) BUN/Creatinine Ratio 14.3 (10.0-20.0) Serum Glucose 174 mg/dL (74-106) Calcium Level 9.1 mg/dL (8.7-10.4) POC Glucose 163 mg/dl (70-106) Urine Creatinine 95.32 mg/dL (30.0-125.0) Urine Protein/Creatinine Ratio 0.30 Urine Sodium 19 mmol/L (40-220) Urine Total Protein 28.4 mg/dL (1-14) Urine Opiates Screen Neg (NEGATIVE) Urine Fentanyl Screen Neg (NEGATIVE) Urine Barbiturates Screen Neg (NEGATIVE) Urine Phencyclidine Screen Neg (NEGATIVE) Urine Amphetamines Screen Neg (NEGATIVE) Urine Benzodiazepines Screen Neg (NEGATIVE) Urine Cocaine Screen Neg (NEGATIVE) Urine Cannabinoids Screen Neg (NEGATIVE) Prothrombin Time 11.6 sec (9.3-11.8) Prothrombin Time INR 1.11 (0.9-1.15) Activated Partial Thromboplast Time 37.6 SEC (24.5-34.5) Phosphorus Level 2.5 mg/dL (2.4-5.1) Magnesium Level 1.8 mg/dL (1.6-2.6) Vitamin D 25-Hydroxy 32.5 ng/mL (30.0-100) Test 12/01/24 08:45 12/01/24 05:49 11/30/24 13:10 11/30/24 09:36 Influenza Type A Antigen Negative (Negative) Influenza Type B Antigen Negative (Negative) SARS-CoV-2 Antigen (Rapid) Negative (NEGATIVE) D-Dimer, Quantitative 0.37 mg/L FEU (0.0-0.49) Total Bilirubin 0.7 mg/dL (0.2-1.0) Aspartate Amino Transferase (AST) 27 U/L (13-40) Alanine Aminotransferase (ALT) 23 U/L (7-40) Alkaline Phosphatase 91 U/L (46-116) Troponin I High Sensitivity 999 ng/L (</=54) Total Protein 5.4 g/dL (5.7-8.2) Albumin 3.5 g/dL (3.2-4.8) Parathyroid Hormone (Intact) 122.0 pg/mL (18.4-80.1) Urine Color Light-yellow (Yellow) Urine Clarity Clear (Clear) Urine pH 5.5 (5.0-9.0) Urine Specific [place] 1.012 (1.001-1.035) Urine Protein Negative (Negative) Urine Ketones Negative (Negative) Urine Blood Negative /uL (Negative) Urine Nitrite Negative (Negative) Urine Bilirubin Negative (Negative) Urine Urobilinogen Normal mg/dL (Negative) Urine Leukocyte Esterase Negative /uL (Negative) Urine RBC <1 /hpf (0 - 3) Urine Microscopic WBC < 1 /HPF (0-3) Urine Squamous Epithelial Cells None seen /hpf (<5) Urine Bacteria None seen /hpf (None Seen) Urine Glucose 3+ mg/dL (Normal) Triglycerides Level 56 mg/dL (< 150) Cholesterol Level 102 mg/dL (< 200) LDL Cholesterol 36 mg/dL (< 100) HDL Cholesterol 42 mg/dL (40-59) Test 11/30/24 08:34 11/30/24 06:44 Lactic Acid Level 0.7 mmol/L (0.4-2.0) Hemoglobin A1c 5.7 % A1C (<5.7) B-Type Natriuretic Peptide 242.48 pg/mL (0-100) Other Laboratory Tests 12/02/24 06:24 Brief Hx & Hospital Course: This is a 69-year-old male with past medical history of CHF, hypertension, diabetes, paroxysmal atrial flutter (status post cardiac ablation), insomnia and sleep apnea came to the hospital due to body shaking and chills. Per patient, he became of sleep at 2:00 a.m. last day and was feeling chill called and had generalized body shaking, he slipped back but upon waking up from sleep still the patient had body shaking. He also reports palpitation, nausea and vomiting. He denies fever, shortness of breaths, chest pain, any recent bowel and bladder habit changes. Patient had a sick contact with the son who was recently admitted for pneumonia. PMHx: CHF, hypertension, diabetes, paroxysmal atrial flutter (status post cardiac ablation), insomnia and sleep apnea PSHx: Not significant Family history: Noncontributory Social history: Denies smoking, or any other drug use. Lives at home with family. Home medication: Lantus, metoprolol, allopurinol, amlodipine, atorvastatin, finasteride, gabapentin and trazodone Allergic history: No known allergy Hospital course: Patient was admitted on the line of sepsis due to pneumonia. Chest x-ray showed Chest x-ray shows right upper lobe airspace consolidation. Patchy left mid lung airspace opacification, with small left pleural effusion .Patient was given sepsis protocol including IV fluid, and empiric antibiotics Rocephin and azithromycin. Sputum culture, influenza and COVID-19 were negative. Due to raised creatinine nephrology was consulted, recommended medical management. EKGs showed normal sinus rhythm with no significant ST or T-wave changes, echo performed in showed LVEF 60% with normal RV, and due to raised troponin cardiology was consulted, recommended medical management and the patient was given aspirin, atorvastatin, amlodipine and metoprolol. On follow up decreased. On 12/03/2019, the patient was feeling better since admission and did not have any active complaint including tremor, shortness of breath which has been. Discharge plan discussed with the patient and the patient was discharged home. Discharge plan: Doxycycline 100 mg b.i.d. for 7 days Continue home meds Follow up with the PCP within 1 week of the discharge Consults/Reason for consult Cardiology: Raised troponin Nephrology: Raised RFT Operations or Procedures [place] [id number] Ph: [phone] DIAGNOSTIC IMAGING Diagnostic Imaging Report : [id number] Signed PATIENT: SERENA DANIEL ACCT: [id number] UNIT: [id number] : 1955 LOC: ER ROOM / BED: / AGE / SEX: 69 / M ADM STATUS: REG ER SERVICE 4 ORDERING PHYSICIAN: ANN WEBB MD PROCEDURE(s): CXRP - CHEST PORTABLE REASON: chest pain ORDER NUMBER(s): [id number], ACCESSION NUMBER(s): [id number] CHEST RADIOGRAPH Indication: chest pain Technique: Single frontal view of the chest was obtained Comparison: None FINDINGS: The cardiac silhouette is unremarkable. The lungs demonstrate extensive right upper lobe airspace consolidation. Patchy left mid lung airspace opacification. The pulmonary vasculature is unremarkable. Small left pleural effusion. There is no pneumothorax. IMPRESSION: 1. Right upper lobe airspace consolidation. Patchy left mid lung airspace opacification. Follow-up to resolution. 2. Small left pleural effusion. ATED BY: FABRICIO MCGRATH MD DICTATED DATE/TIME: 11/30/24749 SIGNED BY: FABRICIO MCGRATH MD SIGNED DATE/TIME: 11/30/24749 CC: Condition at Discharge: Stable Final Diagnosis/Problems List Sepsis, likely due to pneumonia Acute hypoxic respiratory failure, likely due to pneumonia Pneumonia, likely due to Gram-positive Gram-negative bacteria, atypical/viral Left pleural effusion NSTEMI, likely type 2, likely due to above History of hypertension History of sleep apnea Paroxysmal atrial fibrillation/flutter, status post ablation Aortic sclerosis ROBERT on CKD, baseline is not available Diabetes type 2 with hyperglycemia Insomnia Essential tremor Ruled out heart failure Diabetes type 2 Hypotension Discharge Disposition: Home Discharge Instruct/Medications Diet: Consistent carbohydrate, Cardiac 2g Na,low cholest, Renal Activity: No Restrictions, As Tolerated Follow Up/Referral: pcp, nephrology Medications: below Discharge Statement: "Patient was advised to return to the ER or call 911 if any headaches, dizziness, shortness of breath, chest pain, abdominal pain, bleeding, fevers, or worsening of medical condition. Patient was counseled about treatment plan, medications, possible side effects, patientverbalized understanding. All questions were answered to the best of my ability. This discharge took greater then 30 minutes in planning, reviewing documentation, counseling the patient, and discussing with other team members." ASSESSMENT ASSESSMENT Assessment Sepsis, likely due to pneumonia Pneumonia, likely due to Gram-positive Gram-negative bacteria, atypical/viral Left pleural effusion NSTEMI, likely type 2, likely due to above History of hypertension History of sleep apnea Paroxysmal atrial fibrillation/flutter, status post ablation Aortic sclerosis ROBERT on CKD, baseline is not available Diabetes type 2 with hyperglycemia Insomnia AMARILIS CLARK RESGUILHERME Dec 02, 2024 16:30
== END 2024-12-02 11:20 | disposition home or self-care (01) | DRG 871 ==
LOC: ER 06:15 → OVERFLOW 12:30 → TELE-CENTR 17:59
PROVIDERS: ADMIT Student in an Organized Health Care Education/Training Program; ATTEND Emergency Medicine
DX: A41.50 Gram-negative sepsis, unspecified (principal); I21.A1 Myocardial infarction type 2; I50.33 Acute on chronic diastolic (congestive) heart failure; J96.01 Acute respiratory failure with hypoxia; J12.9 Viral pneumonia, unspecified; J15.69 Pneumonia due to other Gram-negative bacteria; J15.9 Unspecified bacterial pneumonia; I13.0 Hypertensive heart and chronic kidney disease with heart failure and stage 1 through stage 4 chronic kidney disease, or unspecified chronic kidney disease; N17.9 Acute kidney failure, unspecified; N18.4 Chronic kidney disease, stage 4 (severe); I48.92 Unspecified atrial flutter; Z20.822 Contact with and (suspected) exposure to COVID-19; E11.22 Type 2 diabetes mellitus with diabetic chronic kidney disease; E78.5 Hyperlipidemia, unspecified; E11.65 Type 2 diabetes mellitus with hyperglycemia; I70.0 Atherosclerosis of aorta; G25.0 Essential tremor; G47.30 Sleep apnea, unspecified; G47.00 Insomnia, unspecified; I48.0 Paroxysmal atrial fibrillation; Z79.01 Long term (current) use of anticoagulants; Z79.899 Other long term (current) drug therapy; Z83.3 Family history of diabetes mellitus; Z79.4 Long term (current) use of insulin; I25.2 Old myocardial infarction
CPT/HCPCS: 36415; 70450; 71045; 80048; 80053; 80061; 80307; 81001; 82306; 82570; 82962; 83036; 83605; 83735; 83880; 83970; 84100; 84156; 84300; 84484; 85025; 85379; 85610; 85730; 87040; 87081; 87426; 87804; 93005; 93306; 94640; 96365; 99291; G0378; J0692; J1815; J2405; J2470